=== PATIENT | female | born 1950 | race Hispanic/Latino ===

== ENCOUNTER 2017-10-14 13:44 | Emergency (ER) | payer OTHER, MEDICARE ==
[~2017-10-14] VITALS: Ht 147.3 cm; Wt 59.9 kg
--- OUTSIDE RECORDS SUMMARY | 2017-10-14 13:50 | XMS REPORT ---
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 Allergies, Adverse Reactions, Alerts This patient has no known allergies or adverse reactions. Medications This patient has no known medications. Encounters Start Date/Time End Date/Time Encounter Type Admission Type Attending [facility] Facility Care Department Encounter ID 2017-10-04 11:55:16 2017-10-04 11:55:16 Outpatient [facility] [id number] 2017-08-30 13:19:04 2017-08-30 13:19:04 Outpatient [facility] [id number] 2017-08-27 00:00:00 2017-08-27 00:00:00 Outpatient [facility] [id number] 2017-08-25 00:00:00 2017-08-25 00:00:00 Outpatient [facility] [id number] 2017-07-26 10:43:23 2017-07-26 10:43:23 Outpatient [facility] [id number] 2017-07-19 00:00:00 2017-07-19 00:00:00 Outpatient [facility] [id number] 2017-07-05 00:00:00 2017-07-05 00:00:00 Outpatient [facility] [id number] 2017-06-07 14:40:44 2017-06-07 14:40:44 Outpatient [facility] [id number] 2017-05-17 13:22:31 2017-05-17 13:22:31 Outpatient [facility] [id number] Results Test Description Test Time Test Comments Text Results Atomic Results Result Comments CBC W/PLT COUNT & AUTO DIFFERENTIAL 2017-09-26 19:04:00 WHITE BLOOD CELL COUNT (BEAKER) (test bvxd=742) 3.9 K/ L 3.5-10.5 RED BLOOD CELL COUNT (BEAKER) (test btwu=579) 2.73 M/ L 3.93-5.22 HEMOGLOBIN (BEAKER) (test mutw=154) 9.3 GM/DL 11.2-15.7 HEMATOCRIT (BEAKER) (test neys=218) 27.3 % 34.1-44.9 MEAN CORPUSCULAR VOLUME (BEAKER) (test lvru=858) 100.0 fL 79.4-94.8 MEAN CORPUSCULAR HEMOGLOBIN (BEAKER) (test zjuf=012) 34.1 pg 25.6-32.2 MEAN CORPUSCULAR HEMOGLOBIN CONC (BEAKER) (test sjax=608) 34.1 GM/DL 32.2- 35.5 RED CELL DISTRIBUTION WIDTH (BEAKER) (test vmqx=323) 16.3 % 11.7-14.4 PLATELET COUNT (BEAKER) (test quzz=261) 50 K/CU MM 150-450 MEAN PLATELET VOLUME (BEAKER) (test izvi=616) 11.2 fL 9.4-12.3 NUCLEATED RED BLOOD CELLS (BEAKER) (test upse=879) 0 /100 WBC 0-0 IMMATURE GRANULOCYTES-RELATIVE PERCENT (BEAKER) (test elmm=9335) 1 % 0-1 (MANUAL DIFFERENTIAL)2017-09-26 19:04:00* Test Item Value Reference Range Comments NEUTROPHILS - REL (DIFF) (BEAKER) (test epen=2540) 78 % LYMPHOCYTES - REL (DIFF) (BEAKER) (test ykmv=5118) 9 % MONOCYTES - REL (DIFF) (BEAKER) (test mcct=2009) 7 % EOSINOPHILS - REL (DIFF) (BEAKER) (test bykw=1393) 3 % BANDS - REL (DIFF) (BEAKER) (test hyri=2548) 3 % 0-10 NEUTROPHILS - ABS (DIFF) (BEAKER) (test isjp=3374) 3.04 K/ L 1.80-8.00 LYMPHOCYTES - ABS (DIFF) (BEAKER) (test tuzd=0341) 0.35 K/ L 1.48-4.50 MONOCYTES - ABS (DIFF) (BEAKER) (test ywsk=6831) 0.27 K/ L 0.00-1.30 EOSINOPHILS - ABS (DIFF) (BEAKER) (test atri=5607) 0.12 K/ L 0.00-0.50 BANDS-ABS (DIFF) (BEAKER) (test fyzp=4953) 0.1 K/ L 0.0-0.8 TOTAL COUNTED (BEAKER) (test rpfg=8495) 100 BANDS + SEGMENTED NEUTROPHILS (BEAKER) (test vzzb=5490) 3.16 WBC MORPHOLOGY (BEAKER) (test mtml=430) Normal PLT MORPHOLOGY (BEAKER) (test mpaf=391) Normal OVALOCYTES (BEAKER) (test xzup=307) 1+ few TEAR DROP CELLS (BEAKER) (test pjld=019) 1+ few PT/[id number] 18:45:00* Test Item Value Reference Range Comments PROTIME (BEAKER) (test nmeo=112) 23.1 seconds 11.7-14.7 INR (BEAKER) (test gcfv=803) 2.1 <=5.9 PARTIAL THROMBOPLASTIN TIME (BEAKER) (test sjzj=878) 42.7 seconds 22.5-36.0 RECOMMENDED COUMADIN/WARFARIN INR THERAPY RANGESSTANDARD DOSE: 2.0 - 3.0 Includes: PROPHYLAXIS for venous thrombosis, systemic embolization; TREATMENT for venous thrombosis and/or pulmonary embolus.HIGH RISK: Target INR is 2.5-3.5 for patients with mechanical heart valves.BASIC METABOLIC [id number] 18:43: 00* Test Item Value Reference Range Comments SODIUM (BEAKER) (test auau=906) 136 meq/L 136-145 POTASSIUM (BEAKER) (test mwry=660) 3.1 meq/L 3.5-5.1 CHLORIDE (BEAKER) (test jkez=727) 108 meq/L 98-107 CO2 (BEAKER) (test dyxg=796) 19 meq/L 22-29 BLOOD UREA NITROGEN (BEAKER) (test ymoa=192) 11 mg/dL 7-21 CREATININE (BEAKER) (test smhc=327) 0.68 mg/dL 0.57-1.25 GLUCOSE RANDOM (BEAKER) (test udgw=914) 105 mg/dL 70-105 CALCIUM (BEAKER) (test nsua=490) 7.6 mg/dL 8.4-10.2 EGFR (BEAKER) (test kqqk=1288) 87 mL/min/1.73 sq m ESTIMATED GFR IS NOT ACCURATE CREATININE CLEARANCE IN PREDICTING GLOMERULAR FILTRATION RATE. ESTIMATED GFR IS NOT APPLICABLE FOR DIALYSIS PATIENTS. OVA AND PARASITE [id number] 09:26:00* Test Item Value Reference Range Comments DIRECT SMEAR - O\\T\\P (BEAKER) (test uzxf=902) No ova or parasites seen No ova or parasites seen CONCENTRATE SMEAR - O\\T\\P (BEAKER) (test nrkk=669) No ova or parasites seen No ova or parasites seen TRICHROME SMEAR - O\\T\\P (BEAKER) (test cjvv=653) No ova or parasites seen No ova or parasites seen RAD, CHEST, 1 VIEW, NON [id number] 23:08:00Reason for exam:->SHORTNESS OF BREATHFINAL REPORT INDICATION: SHORTNESS OF BREATH COMPARISON: September 01, 2017 TECHNIQUE: Single frontal view of the chest. FINDINGS: Lungs and pleura: Faint right infrahilar airspace disease. No effusion.Heart and mediastinum: Normal heart size. Unremarkable mediastinal contours.Osseous structures: No acute abnormality.Other: None. IMPRESSION: Right infrahilar airspace disease is nonspecific. This may reflect under inspiration or developing pneumonia in the appropriate clinical context. Signed : JR Dc Robert MDReport Verified Date/Time: 09/16/2017 23:08:11 Reading Location: [address] Reading Room ELLANEOUS LAB [id number] 07:42:00* Test Item Value Reference Range Comments SCAN RESULT (test uhxw=1127084) TISSUE [id number] 18:34:00Surgical Pathology Report Case: [id number] Authorizing Provider: Rhys Clark MD Collected: 09/13/2017 1123 Ordering Location: [facility] Endoscopy Received: 09/13/2017 1442 Services Pathologist: Rosalva Shine MD Specimens: A) - Stomach, Antrum B) - Biopsy, Terminal Ileum, bx check for CMV C) - Large Intestine, Colon - Right/ Ascending, bx check for CMV D) - Large Intestine, Colon - Left/Descending, bx check for CMV A.STOMACH, ANTRUM, ENDOSCOPIC BIOPSY: - CONSISTENT WITH PORTAL GASTROPATHY - CHRONIC GASTRITIS - NO HELICOBACTER PYLORI-LIKE ORGANISMS SEEN ON WARTHIN- STARRY STAIN - NO INTESTINAL METAPLASIA, DYSPLASIA OR MALIGNANCY NOTED - IMMUNOHISTOCHEMICAL STAIN FOR HELICOBACTER IS NEGATIVEB.TERMINAL ILEUM, ENDOSCOPIC BIOPSY: - NO PATHOLOGIC ALTERATION - NO VILLUS BLUNTING, GRANULOMAS, DYSPLASIA OR MALIGNANCY SEEN - NEGATIVE FOR CMV BY IMMUNOHISTOCHEMISTRYC.COLON, RIGHT/ASCENDING, ENDOSCOPIC BIOPSY: - NO PATHOLOGIC ALTERATION - NO SIGNIFICANT ARCHITECTURAL DISTORTION SEEN - NO INCREASED CHRONIC INFLAMMATION PRESENT - NO VIRAL INCLUSIONS, FEATURE OF MICROSCOPIC COLITIS, DYSPLASIA OR MALIGNANCY PRESENT - NEGATIVE FOR CMV BY IMMUNOHISTOCHEMISTRYD.COLON, LEFT/DESCENDING, ENDOSCOPIC BIOPSY: - NO PATHOLOGIC ALTERATION - NO SIGNIFICANT ARCHITECTURAL DISTORTION SEEN - NO INCREASED CHRONIC INFLAMMATION PRESENT - NO VIRAL INCLUSIONS, FEATURE OF MICROSCOPIC COLITIS, DYSPLASIA OR MALIGNANCY PRESENT - NEGATIVE FOR CMV BY IMMUNOHISTOCHEMISTRY Signing Pathologist Direct Phone Line: [phone] of liver without ascites, diarrhea, check for CMVA. Stomach antrum. B. Terminal ileum biopsy. C. Right ascending colon biopsy. D. Left descending colon biopsySpecimen is received in four containers of formalin all labeled with the patient's information and medical record number.Specimen A: Labeled "stomach antrum" consists of four fragments of foster-white soft tissue ranging from less than 0.1 to 0.2 cm, submitted in A1.Specimen B: Labeled "terminal ileum biopsy" consists of a 0.2 cm fragment of foster tissue submitted in B1.Specimen C: Labeled "right ascending colon biopsy" consists of multiple fragments of foster tissue ranging from less than 0.1 to 0.2 cm, submitted entirely in C1.Specimen D: Labeled "left descending colon biopsy" consists of multiple fragments of foster-white red soft tissue ranging less than 0.1 from 0.3, submitted entirely in D1. CG/ewThe following special studies were performed on this case and the interpretation is incorporated in the diagnostic report above:WARTHIN-STARRY; HELICOBACTER PYLORI; CMV X 3The immunohistochemistry test was developed and its performance characteristics determined by [facility]. It has not been cleared or approved by the U.S. Food and Drug Administration. The FDA has determined that such clearance or approval is not necessary. The test is used for clinical purposes. It should not be regarded as investigational or for research. This laboratory is certified under the Clinical Laboratory Improvement Amendments of 1988 (CLIA-88) as qualified to perform high complexity clinical laboratory testing.CLOSTRIDIUM DIFFICILE TOXIN [id number] 15:16:00* Test Item Value Reference Range Comments CLOSTRIDIUM DIFFICILE TOXIN, PCR ([employer]) (test ogcl=8973) Not Detected Not Detected This qualitative real-time polymerase chain reaction assay detects the tcdB gene , encoded on the C.difficile pathogenicity locus (PaLoc). The product of tcdB, toxin B, is a cytotoxin essential for causing C.difficile-associated disease ( CDAD) and is found in virtually all toxigenic C.difficile.This assay is performed for patients suspected of having either community-acquired or nosocomial CDAD. Accordingly, only symptomatic patients should be tested and formed stools will be rejected unless ileus is present (i.e., specified when ordering). Patients may be colonized with toxigenic C.difficile strains not causing active disease; therefore, clinical correlation is needed when deciding how to manage patients with a positive test result.The assay has not been validated as a test of cure as amplifiable nucleic acid may persist after effective treatment; therefore, follow-up testing of a positive result is not recommended.MISCELLANEOUS LAB [id number] 09:59:00* Test Item Value Reference Range Comments SCAN RESULT (test qvyk=[id number]) HEPATITIS B SURFACE [id number] 17:24:00* Test Item Value Reference Range Comments HEPATITIS B SURFACE ANTIGEN (2) ([employer]) (test msux=1931) Nonreactive Nonreactive HEPATITIS A ANTIBODY, [id number] 17:24:00* Test Item Value Reference Range Comments HEPATITIS A IGM ANTIBODY ([employer]) (test pway=143) Nonreactive Nonreactive HIV-1 ANTIGEN WITH HIV-1/2 [id number] 17:24:00* Test Item Value Reference Range Comments HIV-1 ANTIGEN WITH HIV 1\\T\\2 ANTIBODY (2) ([employer]) (test usnb=0330) Nonreactive Nonreactive [id number] 16:44:00* Test Item Value Reference Range Comments RPR SCREEN ([employer]) (test kxhs=891) Nonreactive Nonreactive CRYPTOCOCCAL [id number] 16:40:00* Test Item Value Reference Range Comments CRYPTOCOCCAL ANTIGEN, SERUM ([employer]) (test etcg=6549) Negative Negative, Interference HEMOGLOBIN [id number] 14:20:00* Test Item Value Reference Range Comments HEMOGLOBIN A1C (BEAKER) (test cdoe=694) < % 4.3-6.1 RAD, BONE DENSITY [id number] 13:53:00Reason for Exam:->evaluation for liver transplantFINAL REPORT Bone mineral density study , 09/01/2017. CLINICAL INDICATION: Liver transplant evaluation. COMPARISON: None. FINDINGS: Bone densitometry of the femoral necks and lumbar spine was performed. The left femoral neck bone mineral density is 0.832 gm/cm2, the T- score is -1.5, and the Z-score is 0.2. The right femoral neck total bone mineral density is 0.827 gm/cm2, the T-score is -1.5, and the Z-score is 0.2. The lumbar spine total bone mineral density is 0.752 gm/cm2, the T-score is -3.6 , and the Z-score is -1.8. IMPRESSION: 1. WHO classification of osteopenia for the left femoral neck with an increased risk of fracture. 2. WHO classification of osteopenia for the right femoral neck with an increased risk of fracture. 3. WHO classification of osteoporosis for the lumbar spine with a high risk of fracture. Signed: Akiko Mackey MDReport Verified Date/Time: 13:53:47 Reading Location: [address] Radiology Reading Room ALYSIS W/ [id number] 13:30:00* Test Item Value Reference Range Comments COLOR (BEAKER) (test dfhq=074) [place] CLARITY (BEAKER) (test kodm=139) Hazy SPECIFIC GRAVITY UA (BEAKER) (test axkw=507) 1.024 1.001-1.035 PH UA (BEAKER) (test ovab=301) 6.0 5.0-8.0 PROTEIN UA (BEAKER) (test lkkk=732) 20 mg/dL Negative GLUCOSE UA (BEAKER) (test hjgp=169) Negative Negative KETONES UA (BEAKER) (test aowg=752) Negative Negative BILIRUBIN UA (BEAKER) (test yfen=687) Negative Negative BLOOD UA (BEAKER) (test vlvq=841) Negative Negative NITRITE UA (BEAKER) (test sjtd=646) Negative Negative LEUKOCYTE ESTERASE UA (BEAKER) (test lyac=780) Small Negative UROBILINOGEN UA (BEAKER) (test bdsi=477) 0.2 mg/dL 0.2-1.0 RBC UA (BEAKER) (test jdfq=704) 43 /HPF WBC UA (BEAKER) (test zobu=436) 26 /HPF MUCUS (BEAKER) (test dmme=6594) Many SQUAMOUS EPITHELIAL (BEAKER) (test goxo=557) 7 /HPF CRYSTALS, URINE (BEAKER) (test paxn=9519) Occasional YEAST (BEAKER) (test xasv=7547) Moderate SOURCE(BEAKER) (test fklr=3693) CYTOMEGALOVIRUS ANTIBODY, [id number] 13:07:00* Test Item Value Reference Range Comments CYTOMEGALOVIRUS IGG ANTIBODY (BEAKER) (test uoxx=559) Positive CYTOMEGALOVIRUS ANTIBODY, [id number] 13:07:00* Test Item Value Reference Range Comments CYTOMEGALOVIRUS IGM ANTIBODY (BEAKER) (test jwmk=992) Negative EBV-VCA ANTIBODY, [id number] 13:07:00* Test Item Value Reference Range Comments SHIRLEY-NAVA VCA IGG (BEAKER) (test ojeh=486) Positive EBV-VCA ANTIBODY, [id number] 13:07:00* Test Item Value Reference Range Comments SHIRLEY-NAVA VCA IGM (BEAKER) (test gvly=454) Negative [id number] 13:04:00* Test Item Value Reference Range Comments T4 TOTAL (BEAKER) (test wduq=179) 6.1 ug/dL 4.9-11.7 [id number] 13:04:00* Test Item Value Reference Range Comments THYROID STIMULATING HORMONE (BEAKER) (test iqbu=456) 2.02 uIU/mL 0.35-4.94 [id number] 13:04:00* Test Item Value Reference Range Comments T3 TOTAL (BEAKER) (test fphh=640) 56 ng/dL 48-159 VITAMIN D, [id number] 13:04:00* Test Item Value Reference Range Comments VITAMIN D 25-OH (BEKVNG) (test sugb=9650) 15.5 ng/mL 6.6-49.9 Effective 05/19/2017: Reference Range ChangeNew: 6.6-49.9 ng/mL Previous: 13.0 -47.8 ng/mLRecommended Vitamin D Target Range: 30.0-40.0 ng/mLRAD, MANDIBLE, MIN 4 [id number] 13:02:00Reason for Exam:->evaluation for liver transplantFINAL REPORT Mandible series, five images HISTORY: Liver transplant COMPARISON: None IMPRESSION:Patient is edentulous. Mandible intact. Temporomandibular joints unremarkable. The nasal sinuses and mastoid air cells clear. Atherosclerosis noted. Soft tissues otherwise unremarkable. Signed: Akiko Mcakey Verified Date/Time: 09/01/2017 13:02:39 Reading Location: [address] Radiology Reading Room , CHEST, 2 [id number] 12:53:00Reason for Exam:->evaluation for liver transplantFINAL REPORT Chest, PA and lateral. History: Liver transplant evaluation. Comparison: 06/17/2017. Discussion: The cardiomediastinal silhouette and pulmonary vasculature are within normal limits. The lungs are clear without evidence of consolidation or effusion. There are no acute osseous abnormalities. The soft tissues are unremarkable. IMPRESSION: No acute cardiopulmonary abnormality. Signed: Akiko Mackey Verified Date/Time: 09/01/2017 12:53:21 Reading Location: [address] Radiology Reading Room [id number] 12:47:00* Test Item Value Reference Range Comments TRANSFERRIN (BEAKER) (test aicu=756) 141 mg/dL 174-382 Specimen slightly ictericCOMPREHENSIVE METABOLIC [id number] 12:38:00* Test Item Value Reference Range Comments TOTAL PROTEIN (BEAKER) (test okjz=788) 5.8 gm/dL 6.0-8.3 Specimen slightly hemolyzed ALBUMIN (BEAKER) (test zcbk=0170) 2.3 g/dL 3.5-5.0 Specimen slightly hemolyzed ALKALINE PHOSPHATASE (BEAKER) (test pnxj=175) 187 U/L 40-150 BILIRUBIN TOTAL (BEAKER) (test ykns=748) 2.5 mg/dL 0.2-1.2 Specimen slightly hemolyzed SODIUM (BEAKER) (test kdjy=498) 141 meq/L 136-145 POTASSIUM (BEAKER) (test qnqm=915) 3.7 meq/L 3.5-5.1 Specimen slightly hemolyzed CHLORIDE (BEAKER) (test vjrd=482) 109 meq/L 98-107 CO2 (BEAKER) (test gpjv=277) 22 meq/L 22-29 BLOOD UREA NITROGEN (BEAKER) (test lxkk=302) 13 mg/dL 7-21 CREATININE (BEAKER) (test ktve=721) 0.71 mg/dL 0.57-1.25 Specimen slightly hemolyzed GLUCOSE RANDOM (BEAKER) (test horc=399) 87 mg/dL 70-105 CALCIUM (BEAKER) (test ketf=474) 7.9 mg/dL 8.4-10.2 AST (SGOT) (BEAKER) (test balp=938) 64 U/L 5-34 Specimen slightly hemolyzed ALT (SGPT) (BEAKER) (test atti=015) 32 U/L 6-55 Specimen slightly hemolyzed EGFR (BEAKER) (test eadw=6844) 82 mL/min/1.73 sq m ESTIMATED GFR IS NOT ACCURATE CREATININE CLEARANCE IN PREDICTING GLOMERULAR FILTRATION RATE. ESTIMATED GFR IS NOT APPLICABLE FOR DIALYSIS PATIENTS. Specimen slightly [id number] 12:21:00* Test Item Value Reference Range Comments ETHANOL (BEAKER) (test mxza=873) < mg/dL <=10 [id number] 12:10:00* Test Item Value Reference Range Comments PHOSPHORUS (BEAKER) (test fdrw=267) 2.8 mg/dL 2.3-4.7 Specimen slightly hemolyzed URIC [id number] 12:10:00* Test Item Value Reference Range Comments URIC ACID (BEAKER) (test yhra=621) 7.8 mg/dL 2.6-7.2 Specimen slightly hemolyzed Specimen slightly ictericLIPID [id number] 12:10:00* Test Item Value Reference Range Comments TRIGLYCERIDES (BEAKER) (test voso=420) 85 mg/dL Specimen slightly hemolyzed CHOLESTEROL (BEAKER) (test fbto=727) 113 mg/dL Specimen slightly hemolyzed HDL CHOLESTEROL (BEAKER) (test jodc=259) 28 mg/dL LDL CHOLESTEROL CALCULATED (BEAKER) (test xnhd=254) 68 mg/dL Triglyceride Reference Range: Low Risk <150 Borderline 150-199 High Risk 200-499 Very High Risk >=500Cholesterol Reference Range: Low Risk <200 Borderline 200-239 High Risk >240HDL Cholesterol Reference Range: Low Risk >=60 High Risk <40LDL Cholesterol Reference Range: Optimal <100 Near Optimal 100-129 Borderline 130-159 High 160-189 Very High >=190 Specimen slightly ictericBILIRUBIN, [id number] 12:10:00* Test Item Value Reference Range Comments BILIRUBIN DIRECT (BEAKER) (test rumh=917) 1.2 mg/dL 0.1-0.5 Specimen slightly hemolyzed GAMMA GLUTAMYL TRANSFERASE (GGT)2017-09-01 12:10:00* Test Item Value Reference Range Comments GAMMA GLUTAMYL TRANSFERASE (BEAKER) (test rjwr=185) 102 U/L 9-64 Specimen slightly hemolyzed Specimen slightly ictericCARCINOEMBRYONIC ANTIGEN (CEA)2017-09-01 12:01:00* Test Item Value Reference Range Comments CARCINOEMBRYONIC ANTIGEN (BEAKER) (test tcvj=835) 6.6 ng/mL 0.0-5.0 [id number] 12:01:00* Test Item Value Reference Range Comments FERRITIN (BEAKER) (test ffbw=612) 246 ng/mL 5-275 CBC W/PLT COUNT & AUTO [id number] 11:21:00* Test Item Value Reference Range Comments WHITE BLOOD CELL COUNT (BEAKER) (test hczz=126) 4.6 K/ L 3.5-10.5 RED BLOOD CELL COUNT (BEAKER) (test fkkg=968) 2.82 M/ L 3.93-5.22 HEMOGLOBIN (BEAKER) (test mtei=558) 9.7 GM/DL 11.2-15.7 HEMATOCRIT (BEAKER) (test xyyr=057) 28.9 % 34.1-44.9 MEAN CORPUSCULAR VOLUME (BEAKER) (test hped=598) 102.5 fL 79.4-94.8 MEAN CORPUSCULAR HEMOGLOBIN (BEAKER) (test vslr=764) 34.4 pg 25.6-32.2 MEAN CORPUSCULAR HEMOGLOBIN CONC (BEAKER) (test ufnw=446) 33.6 GM/DL 32.2- 35.5 RED CELL DISTRIBUTION WIDTH (BEAKER) (test xxuy=636) 16.2 % 11.7-14.4 PLATELET COUNT (BEAKER) (test jrov=316) 74 K/CU MM 150-450 MEAN PLATELET VOLUME (BEAKER) (test xfqa=403) 11.1 fL 9.4-12.3 NUCLEATED RED BLOOD CELLS (BEAKER) (test jfrj=610) 0 /100 WBC 0-0 NEUTROPHILS RELATIVE PERCENT (BEAKER) (test hyiv=916) 36 % LYMPHOCYTES RELATIVE PERCENT (BEAKER) (test vxrx=016) 54 % MONOCYTES RELATIVE PERCENT (BEAKER) (test ftxx=068) 8 % EOSINOPHILS RELATIVE PERCENT (BEAKER) (test fbng=362) 2 % BASOPHILS RELATIVE PERCENT (BEAKER) (test sifc=086) 0 % NEUTROPHILS ABSOLUTE COUNT (BEAKER) (test lbuc=733) 1.63 K/ L 1.56-6.13 LYMPHOCYTES ABSOLUTE COUNT (BEAKER) (test utxz=953) 2.48 K/ L 1.18-3.74 MONOCYTES ABSOLUTE COUNT (BEAKER) (test pxyv=950) 0.36 K/ L 0.24-0.36 EOSINOPHILS ABSOLUTE COUNT (BEAKER) (test abiv=333) 0.07 K/ L 0.04-0.36 BASOPHILS ABSOLUTE COUNT (BEAKER) (test ctnp=249) 0.02 K/ L 0.01-0.08 IMMATURE GRANULOCYTES-RELATIVE PERCENT (BEAKER) (test enhu=6841) 0 % 0-1 [id number] 11:13:00* Test Item Value Reference Range Comments FIBRINOGEN LEVEL (BEAKER) (test uoqe=535) 108 mg/dl 225-434 [id number] 11:08:00* Test Item Value Reference Range Comments PARTIAL THROMBOPLASTIN TIME (BEAKER) (test uajn=679) 37.9 seconds 22.5-36.0 PROTHROMBIN TIME/[id number] 11:07:00* Test Item Value Reference Range Comments PROTIME (BEAKER) (test azev=101) 19.6 seconds 11.7-14.7 INR (BEAKER) (test fmue=064) 1.7 <=5.9 RECOMMENDED COUMADIN/WARFARIN INR THERAPY RANGESSTANDARD DOSE: 2.0 - 3.0 Includes: PROPHYLAXIS for venous thrombosis, systemic embolization; TREATMENT for venous thrombosis and/or pulmonary embolus.HIGH RISK: Target INR is 2.5-3.5 for patients with mechanical heart valves.CALCIUM, [id number] 11:04:00* Test Item Value Reference Range Comments CALCIUM IONIZED (BEAKER) (test jxrw=815) 0.93 mmol/L 1.12-1.27 PH, BLOOD (BEAKER) (test cfkf=4318) 7.40 BLOOD GAS, [id number] 10:37:00* Test Item Value Reference Range Comments PH ARTERIAL (BEAKER) (test deqs=561) 7.46 7.35-7.45 PCO2 ARTERIAL (BEAKER) (test mqvd=277) 30 mmHg 35-45 PO2 ARTERIAL (BEAKER) (test nanm=846) 99 mmHg 80-90 O2 SATURATION ARTERIAL (BEAKER) (test mnyo=422) 97.9 % 96.0-97.0 HCO3 ARTERIAL (BEAKER) (test msvi=696) 21 mmol/L 21-29 BASE EXCESS ARTERIAL (BEAKER) (test fmul=140) -2.0 mmol/L -2.0-3.0 PATIENT TEMPERATURE (BEAKER) (test iogs=6050) 37.0 C FIO2 (BEAKER) (test umgj=5047) 21.0 % MR, ABDOMEN, [id number] 10:31:00FINAL REPORT MR of the abdomen dated September 01, 2017 Comment: Multiplanar T1 and T2-weighted images of the abdomen, postcontrast axial and coronal T1-weighted images of the abdomen were obtained. Liver is cirrhotic in appearance. A 1 cm early enhancing focus is seen in the segment 7 of the liver. There is delayed washout. A 1.3 cm early enhancing focus is noted in the segment 4B of the liver without delayed washout. A 3 mm cyst is seen in the segment 8 of the liver. Spleen is enlarged measuring approximately 15.5 x 6.7 x 10.5 cm. The splenic, superior mesenteric, portal, and hepatic veins are patent. No portal vein thrombosis is seen. Gallbladder is not visualized. No biliary dilatation is seen. Pancreas and adrenals are unremarkable. Both kidneys are normal in size and functioning. Trace to small amount of ascites is seen in the abdomen. Bone marrow signal of the dorsal spine is normal. IMPRESSION:1. Cirrhosis with splenomegaly and portal hypertension.2. Suspicious lesion in the segment 7 of the liver. This can be further evaluated with subsequent examination. Signed: Khalida Eldridge MDReport Verified Date/Time: 09/01/2017 10:31:11 Reading Location: [place] [id number] CT Body Reading Room -[id number] 08:07:00* Test Item Value Reference Range Comments POC-CREATININE (BEAKER) (test wyiw=5623) 0.8 mg/dL 0.6-1.3 TESTED AT [address] [address] POC-EGFR (BEAKER) (test cxju=6342) 72 mL/min/1.73M2 CBC W/PLT COUNT & AUTO [id number] 22:18:00* Test Item Value Reference Range Comments WHITE BLOOD CELL COUNT (BEAKER) (test dcle=604) 5.8 K/ L 3.5-10.5 RED BLOOD CELL COUNT (BEAKER) (test fnij=008) 2.84 M/ L 3.93-5.22 HEMOGLOBIN (BEAKER) (test rqyy=668) 9.4 GM/DL 11.2-15.7 HEMATOCRIT (BEAKER) (test qeyc=291) 28.5 % 34.1-44.9 MEAN CORPUSCULAR VOLUME (BEAKER) (test vwod=122) 100.4 fL 79.4-94.8 MEAN CORPUSCULAR HEMOGLOBIN (BEAKER) (test rkpn=280) 33.1 pg 25.6-32.2 MEAN CORPUSCULAR HEMOGLOBIN CONC (BEAKER) (test bmkh=939) 33.0 GM/DL 32.2- 35.5 RED CELL DISTRIBUTION WIDTH (BEAKER) (test fceb=504) 18.7 % 11.7-14.4 PLATELET COUNT (BEAKER) (test ehfy=102) 55 K/CU MM 150-450 MEAN PLATELET VOLUME (BEAKER) (test xgxf=822) 11.5 fL 9.4-12.3 NUCLEATED RED BLOOD CELLS (BEAKER) (test dfwb=881) 0 /100 WBC 0-0 IMMATURE GRANULOCYTES-RELATIVE PERCENT (BEAKER) (test mmrm=2687) 0 % 0-1 (MANUAL DIFFERENTIAL)2017-07-15 22:18:00* Test Item Value Reference Range Comments NEUTROPHILS - REL (DIFF) (BEAKER) (test jmbv=2334) 33 % LYMPHOCYTES - REL (DIFF) (BEAKER) (test gylk=4476) 53 % MONOCYTES - REL (DIFF) (BEAKER) (test tsnu=0086) 8 % EOSINOPHILS - REL (DIFF) (BEAKER) (test kwek=8783) 4 % BASOPHILS - REL (DIFF) (BEAKER) (test nokr=8463) 2 % NEUTROPHILS - ABS (DIFF) (BEAKER) (test ysfh=0241) 1.91 K/ L 1.80-8.00 LYMPHOCYTES - ABS (DIFF) (BEAKER) (test mvml=7645) 3.07 K/ L 1.48-4.50 MONOCYTES - ABS (DIFF) (BEAKER) (test lmub=4914) 0.46 K/ L 0.00-1.30 EOSINOPHILS - ABS (DIFF) (BEAKER) (test qthd=6408) 0.23 K/ L 0.00-0.50 BASOPHILS - ABS (DIFF) (BEAKER) (test wdfg=8122) 0.12 K/ L 0.00-0.20 TOTAL COUNTED (BEAKER) (test rdgh=8559) 100 WBC MORPHOLOGY (BEAKER) (test wttg=164) Normal PLT MORPHOLOGY (BEAKER) (test lrpa=563) Normal ANISOCYTOSIS (BEAKER) (test ugrf=934) 1+ few MACROCYTES (BEAKER) (test opgi=596) 1+ few ALPHA FETOPROTEIN (AFP), TUMOR [id number] 14:01:00* Test Item Value Reference Range Comments ALPHA-FETOPROTEIN (BEAKER) (test mtij=2580) 7.6 ng/mL <10.0 BASIC METABOLIC [id number] 13:43:00* Test Item Value Reference Range Comments SODIUM (BEAKER) (test egpk=253) 142 meq/L 136-145 POTASSIUM (BEAKER) (test pvah=495) 4.1 meq/L 3.5-5.1 CHLORIDE (BEAKER) (test keow=433) 112 meq/L 98-107 CO2 (BEAKER) (test houa=655) 22 meq/L 22-29 BLOOD UREA NITROGEN (BEAKER) (test oqtf=510) 13 mg/dL 7-21 CREATININE (BEAKER) (test iesl=222) 0.69 mg/dL 0.57-1.25 GLUCOSE RANDOM (BEAKER) (test ttkf=064) 85 mg/dL 70-105 CALCIUM (BEAKER) (test wojr=510) 8.4 mg/dL 8.4-10.2 EGFR (BEAKER) (test bxvp=8607) 85 mL/min/1.73 sq m ESTIMATED GFR IS NOT ACCURATE CREATININE CLEARANCE IN PREDICTING GLOMERULAR FILTRATION RATE. ESTIMATED GFR IS NOT APPLICABLE FOR DIALYSIS PATIENTS. Specimen slightly ictericHEPATIC FUNCTION [id number] 13:43:00* Test Item Value Reference Range Comments TOTAL PROTEIN (BEAKER) (test opxg=582) 6.1 gm/dL 6.0-8.3 ALBUMIN (BEAKER) (test qxyy=1875) 2.7 g/dL 3.5-5.0 BILIRUBIN TOTAL (BEAKER) (test zodd=349) 2.9 mg/dL 0.2-1.2 BILIRUBIN DIRECT (BEAKER) (test lsii=210) 1.7 mg/dL 0.1-0.5 ALKALINE PHOSPHATASE (BEAKER) (test rkte=915) 192 U/L 40-150 AST (SGOT) (BEAKER) (test jgtq=991) 56 U/L 5-34 ALT (SGPT) (BEAKER) (test yphx=929) 28 U/L 6-55 Specimen slightly ictericPROTHROMBIN [id number] 13:12:00* Test Item Value Reference Range Comments PROTIME (BEAKER) (test drcc=811) 17.8 seconds 11.7-14.7 INR (BEAKER) (test hqqh=621) 1.5 <=5.9 RECOMMENDED COUMADIN/WARFARIN INR THERAPY RANGESSTANDARD DOSE: 2.0 - 3.0 Includes: PROPHYLAXIS for venous thrombosis, systemic embolization; TREATMENT for venous thrombosis and/or pulmonary embolus.HIGH RISK: Target INR is 2.5-3.5 for patients with mechanical heart valves.BLOOD [id number] 09:07:00* Test Item Value Reference Range Comments CULTURE (BEAKER) (test qvpp=5787) From Aerobic And Anaerobic Bottles Coagulase negative Staphylococcus GRAM STAIN RESULT (BEAKER) (test hphj=3887) From aerobic and anaerobic bottles : gram positive cocci in clusters NOT DETECTEDPanel is negative for Bio[employer] BCID-detectable organisms. Please refer to traditional culture and sensitivity results as they become available.Other organisms and resistance markers not contained in this PCR panel cannot be excluded and follow-up of traditional culture results is required. This sample was tested at the [facility] Clinical [facility] using the [employer] Blood Culture ID Panel. This test is FDA cleared for in vitro diagnostic use and has been verified and approved by the [facility] Clinical Microbiology laboratory for clinical use. Reference Range: Not DetectedBLOOD [id number] 23:00:00* Test Item Value Reference Range Comments CULTURE (BEAKER) (test xsry=6093) No growth in 5 days MISCELLANEOUS LAB [id number] 14:44:00* Test Item Value Reference Range Comments SCAN RESULT (test xnaw=[id number]) Result comments: NOT DETECTED Panel is negative for BioFire BCID-detectable organisms. Please refer to traditional culture and sensitivity results as they become available. Other organisms and resistance markers not contained in this PCR panel cannot be excluded and follow-up of traditional culture results is required. This sample was tested at the [facility] Clinical [facility]biology [facility] using the [employer] Blood Culture ID Panel. This test is FDA cleared for in vitro diagnostic use and has been verified and approved by the [facility] Clinical Microbiology laboratory for clinical use. Reference Range: Not Detected CBC W/PLT COUNT & AUTO [id number] 07:27:00* Test Item Value Reference Range Comments WHITE BLOOD CELL COUNT (BEAKER) (test sthb=458) 3.4 K/ L 3.5-10.5 RED BLOOD CELL COUNT (BEAKER) (test nmem=589) 2.71 M/ L 3.93-5.22 HEMOGLOBIN (BEAKER) (test azqq=626) 8.6 GM/DL 11.2-15.7 HEMATOCRIT (BEAKER) (test knqk=773) 25.6 % 34.1-44.9 MEAN CORPUSCULAR VOLUME (BEAKER) (test pqek=808) 94.5 fL 79.4-94.8 MEAN CORPUSCULAR HEMOGLOBIN (BEAKER) (test wqbg=381) 31.7 pg 25.6-32.2 MEAN CORPUSCULAR HEMOGLOBIN CONC (BEAKER) (test mppz=059) 33.6 GM/DL 32.2- 35.5 RED CELL DISTRIBUTION WIDTH (BEAKER) (test ucgx=835) 18.5 % 11.7-14.4 PLATELET COUNT (BEAKER) (test cujx=445) 49 K/CU MM 150-450 MEAN PLATELET VOLUME (BEAKER) (test cqql=578) 12.0 fL 9.4-12.3 NUCLEATED RED BLOOD CELLS (BEAKER) (test fnjo=146) 0 /100 WBC 0-0 NEUTROPHILS RELATIVE PERCENT (BEAKER) (test wsgj=586) 23 % LYMPHOCYTES RELATIVE PERCENT (BEAKER) (test ftxr=283) 61 % MONOCYTES RELATIVE PERCENT (BEAKER) (test qyqt=767) 11 % EOSINOPHILS RELATIVE PERCENT (BEAKER) (test segw=630) 5 % BASOPHILS RELATIVE PERCENT (BEAKER) (test jtql=006) 0 % NEUTROPHILS ABSOLUTE COUNT (BEAKER) (test mhyt=382) 0.78 K/ L 1.56-6.13 LYMPHOCYTES ABSOLUTE COUNT (BEAKER) (test eepp=154) 2.05 K/ L 1.18-3.74 MONOCYTES ABSOLUTE COUNT (BEAKER) (test lifg=352) 0.38 K/ L 0.24-0.36 EOSINOPHILS ABSOLUTE COUNT (BEAKER) (test hbug=795) 0.15 K/ L 0.04-0.36 BASOPHILS ABSOLUTE COUNT (BEAKER) (test apgr=965) 0.01 K/ L 0.01-0.08 IMMATURE GRANULOCYTES-RELATIVE PERCENT (BEAKER) (test ndyx=5137) 0 % 0-1 (MANUAL DIFFERENTIAL)2017-06-20 07:27:00* Test Item Value Reference Range Comments NEUTROPHILS - REL (DIFF) (BEAKER) (test xcoq=6439) 34 % LYMPHOCYTES - REL (DIFF) (BEAKER) (test ttxr=4452) 45 % MONOCYTES - REL (DIFF) (BEAKER) (test nyrg=5297) 13 % EOSINOPHILS - REL (DIFF) (BEAKER) (test pefd=0626) 8 % BASOPHILS - REL (DIFF) (BEAKER) (test bcpu=2323) 0 % NEUTROPHILS - ABS (DIFF) (BEAKER) (test miuw=3656) 1.16 K/ L 1.80-8.00 LYMPHOCYTES - ABS (DIFF) (BEAKER) (test sjpn=6574) 1.53 K/ L 1.48-4.50 MONOCYTES - ABS (DIFF) (BEAKER) (test qubl=1776) 0.44 K/ L 0.00-1.30 EOSINOPHILS - ABS (DIFF) (BEAKER) (test nvcf=0622) 0.27 K/ L 0.00-0.50 BASOPHILS - ABS (DIFF) (BEAKER) (test cdhy=5355) 0.00 K/ L 0.00-0.20 TOTAL COUNTED (BEAKER) (test jaqi=7480) 100 PLT MORPHOLOGY (BEAKER) (test ppta=191) Normal SMUDGE CELLS (BEAKER) (test utlq=3027) Present ANISOCYTOSIS (BEAKER) (test swas=802) 1+ few POIKILOCYTES (BEAKER) (test hqjw=679) 1+ few [id number] 06:12:00* Test Item Value Reference Range Comments MAGNESIUM (BEAKER) (test rxfb=325) 1.7 mg/dL 1.6-2.6 BASIC METABOLIC [id number] 06:12:00* Test Item Value Reference Range Comments SODIUM (BEAKER) (test rwcn=015) 139 meq/L 136-145 POTASSIUM (BEAKER) (test wcwn=991) 3.8 meq/L 3.5-5.1 CHLORIDE (BEAKER) (test pkus=719) 111 meq/L 98-107 CO2 (BEAKER) (test rjdl=149) 20 meq/L 22-29 BLOOD UREA NITROGEN (BEAKER) (test zydb=000) 13 mg/dL 7-21 CREATININE (BEAKER) (test zqhk=264) 0.68 mg/dL 0.57-1.25 GLUCOSE RANDOM (BEAKER) (test bwou=009) 105 mg/dL 70-105 CALCIUM (BEAKER) (test uiik=734) 8.1 mg/dL 8.4-10.2 EGFR (BEAKER) (test tfrf=4221) 87 mL/min/1.73 sq m ESTIMATED GFR IS NOT ACCURATE CREATININE CLEARANCE IN PREDICTING GLOMERULAR FILTRATION RATE. ESTIMATED GFR IS NOT APPLICABLE FOR DIALYSIS PATIENTS. Specimen slightly ictericHEPATIC FUNCTION [id number] 06:12:00* Test Item Value Reference Range Comments TOTAL PROTEIN (BEAKER) (test naxu=102) 5.5 gm/dL 6.0-8.3 ALBUMIN (BEAKER) (test qgdg=0052) 2.6 g/dL 3.5-5.0 BILIRUBIN TOTAL (BEAKER) (test hjpa=511) 2.8 mg/dL 0.2-1.2 BILIRUBIN DIRECT (BEAKER) (test thvy=241) 1.5 mg/dL 0.1-0.5 ALKALINE PHOSPHATASE (BEAKER) (test fypd=328) 163 U/L 40-150 AST (SGOT) (BEAKER) (test sqrq=691) 40 U/L 5-34 ALT (SGPT) (BEAKER) (test laxz=738) 21 U/L 6-55 Specimen slightly ictericPROTHROMBIN [id number] 05:22:00* Test Item Value Reference Range Comments PROTIME (BEAKER) (test luei=587) 19.0 seconds 11.7-14.7 INR (BEAKER) (test yfii=930) 1.6 <=5.9 RECOMMENDED COUMADIN/WARFARIN INR THERAPY RANGESSTANDARD DOSE: 2.0 - 3.0 Includes: PROPHYLAXIS for venous thrombosis, systemic embolization; TREATMENT for venous thrombosis and/or pulmonary embolus.HIGH RISK: Target INR is 2.5-3.5 for patients with mechanical heart valves.URINALYSIS W/ [id number] 10 :14:00* Test Item Value Reference Range Comments COLOR (BEAKER) (test keqv=429) [place] CLARITY (BEAKER) (test czdd=777) Hazy SPECIFIC GRAVITY UA (BEAKER) (test zqtw=049) 1.021 1.001-1.035 PH UA (BEAKER) (test ovfj=437) 5.5 5.0-8.0 PROTEIN UA (BEAKER) (test zwmo=779) 20 mg/dL Negative GLUCOSE UA (BEAKER) (test igeb=830) Negative Negative KETONES UA (BEAKER) (test cmoh=566) Negative Negative BILIRUBIN UA (BEAKER) (test moly=935) Negative Negative BLOOD UA (BEAKER) (test bata=184) Negative Negative NITRITE UA (BEAKER) (test vxww=065) Negative Negative LEUKOCYTE ESTERASE UA (BEAKER) (test xmki=030) Trace Negative UROBILINOGEN UA (BEAKER) (test esfw=010) 0.2 mg/dL 0.2-1.0 RBC UA (BEAKER) (test bgtt=688) 1 /HPF WBC UA (BEAKER) (test ryut=084) 8 /HPF BACTERIA (BEAKER) (test qfey=923) Rare MUCUS (BEAKER) (test tbax=0201) Many SQUAMOUS EPITHELIAL (BEAKER) (test fzkb=699) 4 /HPF HYALINE CASTS (BEAKER) (test zndr=339) 11 /LPF AMORPHOUS CRYSTALS (BEAKER) (test xasw=5598) Few SOURCE(BEAKER) (test gptu=1322) Urine, Voided CHLORIDE, RANDOM [id number] 10:00:00* Test Item Value Reference Range Comments CHLORIDE URINE (BEAKER) (test cxbh=802) 78 meq/L Reference Range: No NormalsIf possible, please collect urine at around the time of morning labs for comparison purposesIf possible, please collect urine at around the time of morning labs for comparison purposesIf possible, please collect urine at around the time of morning labs for comparison purposesPOTASSIUM, RANDOM [id number] 10:00:00* Test Item Value Reference Range Comments POTASSIUM URINE (BEAKER) (test bhyj=628) 40.9 meq/L Reference Range: No NormalsIf possible, please collect urine at around the time of morning labs for comparison purposesIf possible, please collect urine at around the time of morning labs for comparison purposesIf possible, please collect urine at around the time of morning labs for comparison purposesSODIUM, RANDOM [id number] 10:00:00* Test Item Value Reference Range Comments SODIUM URINE (BEAKER) (test ruwo=070) 64 meq/L Reference Range: No NormalsIf possible, please collect urine at around the time of morning labs for comparison purposesIf possible, please collect urine at around the time of morning labs for comparison purposesIf possible, please collect urine at around the time of morning labs for comparison [id number] 08:14:00* Test Item Value Reference Range Comments MAGNESIUM (BEAKER) (test ynsc=482) 1.7 mg/dL 1.6-2.6 BASIC METABOLIC [id number] 08:14:00* Test Item Value Reference Range Comments SODIUM (BEAKER) (test awju=578) 143 meq/L 136-145 POTASSIUM (BEAKER) (test jwaa=444) 3.7 meq/L 3.5-5.1 CHLORIDE (BEAKER) (test txbd=200) 115 meq/L 98-107 CO2 (BEAKER) (test ghpc=659) 15 meq/L 22-29 BLOOD UREA NITROGEN (BEAKER) (test gddp=359) 19 mg/dL 7-21 CREATININE (BEAKER) (test mebs=443) 0.67 mg/dL 0.57-1.25 GLUCOSE RANDOM (BEAKER) (test rbsp=554) 97 mg/dL 70-105 CALCIUM (BEAKER) (test acir=080) 8.5 mg/dL 8.4-10.2 EGFR (BEAKER) (test xuzf=9516) 88 mL/min/1.73 sq m ESTIMATED GFR IS NOT ACCURATE CREATININE CLEARANCE IN PREDICTING GLOMERULAR FILTRATION RATE. ESTIMATED GFR IS NOT APPLICABLE FOR DIALYSIS PATIENTS. Specimen slightly ictericHEPATIC FUNCTION [id number] 08:14:00* Test Item Value Reference Range Comments TOTAL PROTEIN (BEAKER) (test ldsy=245) 6.2 gm/dL 6.0-8.3 ALBUMIN (BEAKER) (test zxhk=4442) 3.0 g/dL 3.5-5.0 BILIRUBIN TOTAL (BEAKER) (test uabq=651) 3.1 mg/dL 0.2-1.2 BILIRUBIN DIRECT (BEAKER) (test foyt=171) 1.6 mg/dL 0.1-0.5 ALKALINE PHOSPHATASE (BEAKER) (test lngr=146) 178 U/L 40-150 AST (SGOT) (BEAKER) (test umep=370) 43 U/L 5-34 ALT (SGPT) (BEAKER) (test blrz=487) 22 U/L 6-55 Specimen slightly ictericCBC W/PLT COUNT & AUTO [id number] 07:10:00 * Test Item Value Reference Range Comments WHITE BLOOD CELL COUNT (BEAKER) (test vaod=686) 4.1 K/ L 3.5-10.5 RED BLOOD CELL COUNT (BEAKER) (test rfmr=656) 2.92 M/ L 3.93-5.22 HEMOGLOBIN (BEAKER) (test ocdx=272) 9.4 GM/DL 11.2-15.7 HEMATOCRIT (BEAKER) (test wilg=866) 28.2 % 34.1-44.9 MEAN CORPUSCULAR VOLUME (BEAKER) (test xayw=681) 96.6 fL 79.4-94.8 MEAN CORPUSCULAR HEMOGLOBIN (BEAKER) (test ifuz=348) 32.2 pg 25.6-32.2 MEAN CORPUSCULAR HEMOGLOBIN CONC (BEAKER) (test tvxo=815) 33.3 GM/DL 32.2- 35.5 RED CELL DISTRIBUTION WIDTH (BEAKER) (test jgts=500) 19.0 % 11.7-14.4 PLATELET COUNT (BEAKER) (test oznx=364) 56 K/CU MM 150-450 MEAN PLATELET VOLUME (BEAKER) (test vuql=695) 12.3 fL 9.4-12.3 NUCLEATED RED BLOOD CELLS (BEAKER) (test jqvu=077) 0 /100 WBC 0-0 NEUTROPHILS RELATIVE PERCENT (BEAKER) (test mgfm=700) 28 % LYMPHOCYTES RELATIVE PERCENT (BEAKER) (test mynn=068) 57 % MONOCYTES RELATIVE PERCENT (BEAKER) (test wzai=191) 11 % EOSINOPHILS RELATIVE PERCENT (BEAKER) (test yukz=558) 3 % BASOPHILS RELATIVE PERCENT (BEAKER) (test aunr=695) 0 % NEUTROPHILS ABSOLUTE COUNT (BEAKER) (test xtet=413) 1.15 K/ L 1.56-6.13 LYMPHOCYTES ABSOLUTE COUNT (BEAKER) (test fhxk=216) 2.37 K/ L 1.18-3.74 MONOCYTES ABSOLUTE COUNT (BEAKER) (test pqar=448) 0.46 K/ L 0.24-0.36 EOSINOPHILS ABSOLUTE COUNT (BEAKER) (test hgzn=679) 0.14 K/ L 0.04-0.36 BASOPHILS ABSOLUTE COUNT (BEAKER) (test sgyb=693) 0.01 K/ L 0.01-0.08 IMMATURE GRANULOCYTES-RELATIVE PERCENT (BEAKER) (test dgmy=5928) 0 % 0-1 PROTHROMBIN [id number] 06:53:00* Test Item Value Reference Range Comments PROTIME (BEAKER) (test mfws=848) 17.7 seconds 11.7-14.7 INR (BEAKER) (test iqpq=239) 1.5 <=5.9 RECOMMENDED COUMADIN/WARFARIN INR THERAPY RANGESSTANDARD DOSE: 2.0 - 3.0 Includes: PROPHYLAXIS for venous thrombosis, systemic embolization; TREATMENT for venous thrombosis and/or pulmonary embolus.HIGH RISK: Target INR is 2.5-3.5 for patients with mechanical heart valves.CBC W/PLT COUNT & AUTO [id number] 07:44:00* Test Item Value Reference Range Comments WHITE BLOOD CELL COUNT (BEAKER) (test vnhr=218) 3.8 K/ L 3.5-10.5 RED BLOOD CELL COUNT (BEAKER) (test arsm=528) 2.80 M/ L 3.93-5.22 HEMOGLOBIN (BEAKER) (test qcof=117) 9.1 GM/DL 11.2-15.7 HEMATOCRIT (BEAKER) (test qrky=403) 27.3 % 34.1-44.9 MEAN CORPUSCULAR VOLUME (BEAKER) (test qdbs=997) 97.5 fL 79.4-94.8 MEAN CORPUSCULAR HEMOGLOBIN (BEAKER) (test eqqs=282) 32.5 pg 25.6-32.2 MEAN CORPUSCULAR HEMOGLOBIN CONC (BEAKER) (test ivhg=762) 33.3 GM/DL 32.2- 35.5 RED CELL DISTRIBUTION WIDTH (BEAKER) (test tjcz=078) 19.1 % 11.7-14.4 PLATELET COUNT (BEAKER) (test phai=338) 50 K/CU MM 150-450 MEAN PLATELET VOLUME (BEAKER) (test wyzu=456) 11.3 fL 9.4-12.3 NUCLEATED RED BLOOD CELLS (BEAKER) (test ocew=827) 0 /100 WBC 0-0 NEUTROPHILS RELATIVE PERCENT (BEAKER) (test pnsl=058) 33 % LYMPHOCYTES RELATIVE PERCENT (BEAKER) (test dpab=488) 52 % MONOCYTES RELATIVE PERCENT (BEAKER) (test hutt=460) 11 % EOSINOPHILS RELATIVE PERCENT (BEAKER) (test tbny=584) 4 % BASOPHILS RELATIVE PERCENT (BEAKER) (test fokl=231) 0 % NEUTROPHILS ABSOLUTE COUNT (BEAKER) (test bdcj=808) 1.24 K/ L 1.56-6.13 LYMPHOCYTES ABSOLUTE COUNT (BEAKER) (test yxoi=469) 1.95 K/ L 1.18-3.74 MONOCYTES ABSOLUTE COUNT (BEAKER) (test vsql=197) 0.43 K/ L 0.24-0.36 EOSINOPHILS ABSOLUTE COUNT (BEAKER) (test hpax=829) 0.13 K/ L 0.04-0.36 BASOPHILS ABSOLUTE COUNT (BEAKER) (test ovzz=464) 0.01 K/ L 0.01-0.08 IMMATURE GRANULOCYTES-RELATIVE PERCENT (BEAKER) (test jamz=8085) 0 % 0-1 (MANUAL DIFFERENTIAL)2017-06-18 07:44:00* Test Item Value Reference Range Comments TOTAL COUNTED (BEAKER) (test wrha=7646) [id number] 07:35:00* Test Item Value Reference Range Comments MAGNESIUM (BEAKER) (test oqjn=940) 1.7 mg/dL 1.6-2.6 BASIC METABOLIC [id number] 07:35:00* Test Item Value Reference Range Comments SODIUM (BEAKER) (test vryg=906) 143 meq/L 136-145 POTASSIUM (BEAKER) (test ydpx=332) 3.9 meq/L 3.5-5.1 CHLORIDE (BEAKER) (test yugq=347) 115 meq/L 98-107 CO2 (BEAKER) (test tdrk=185) 19 meq/L 22-29 BLOOD UREA NITROGEN (BEAKER) (test yuqz=656) 21 mg/dL 7-21 CREATININE (BEAKER) (test rgro=276) 0.73 mg/dL 0.57-1.25 GLUCOSE RANDOM (BEAKER) (test tqsb=204) 103 mg/dL 70-105 CALCIUM (BEAKER) (test qhcc=969) 8.5 mg/dL 8.4-10.2 EGFR (BEAKER) (test gepl=0615) 80 mL/min/1.73 sq m ESTIMATED GFR IS NOT ACCURATE CREATININE CLEARANCE IN PREDICTING GLOMERULAR FILTRATION RATE. ESTIMATED GFR IS NOT APPLICABLE FOR DIALYSIS PATIENTS. Specimen slightly ictericHEPATIC FUNCTION [id number] 07:35:00* Test Item Value Reference Range Comments TOTAL PROTEIN (BEAKER) (test swuy=180) 6.1 gm/dL 6.0-8.3 ALBUMIN (BEAKER) (test ardt=3062) 3.0 g/dL 3.5-5.0 BILIRUBIN TOTAL (BEAKER) (test sgls=111) 3.8 mg/dL 0.2-1.2 BILIRUBIN DIRECT (BEAKER) (test kpde=288) 1.8 mg/dL 0.1-0.5 ALKALINE PHOSPHATASE (BEAKER) (test fivg=488) 178 U/L 40-150 AST (SGOT) (BEAKER) (test ibon=496) 42 U/L 5-34 ALT (SGPT) (BEAKER) (test nrxd=256) 23 U/L 6-55 Specimen slightly ictericPROTHROMBIN [id number] 07:18:00* Test Item Value Reference Range Comments PROTIME (BEAKER) (test peee=248) 19.8 seconds 11.7-14.7 INR (BEAKER) (test fenl=244) 1.7 <=5.9 RECOMMENDED COUMADIN/WARFARIN INR THERAPY RANGESSTANDARD DOSE: 2.0 - 3.0 Includes: PROPHYLAXIS for venous thrombosis, systemic embolization; TREATMENT for venous thrombosis and/or pulmonary embolus.HIGH RISK: Target INR is 2.5-3.5 for patients with mechanical heart valves.URINALYSIS W/ [id number] 18 :41:00* Test Item Value Reference Range Comments COLOR (BEAKER) (test pdng=938) Yellow CLARITY (BEAKER) (test fwaf=596) Hazy SPECIFIC GRAVITY UA (BEAKER) (test logb=184) 1.015 1.001-1.035 PH UA (BEAKER) (test msmc=013) 5.5 5.0-8.0 PROTEIN UA (BEAKER) (test jdew=662) Negative Negative GLUCOSE UA (BEAKER) (test jhfb=192) Negative Negative KETONES UA (BEAKER) (test fmon=354) Negative Negative BILIRUBIN UA (BEAKER) (test rwnf=387) Negative Negative BLOOD UA (BEAKER) (test ftfn=444) Negative Negative NITRITE UA (BEAKER) (test heac=089) Negative Negative LEUKOCYTE ESTERASE UA (BEAKER) (test mwyf=921) Small Negative UROBILINOGEN UA (BEAKER) (test pomz=488) 0.2 mg/dL 0.2-1.0 RBC UA (BEAKER) (test scgr=443) < /HPF WBC UA (BEAKER) (test qzfl=580) 3 /HPF MUCUS (BEAKER) (test hiym=0457) Many SQUAMOUS EPITHELIAL (BEAKER) (test nbfe=725) 8 /HPF HYALINE CASTS (BEAKER) (test ucdr=510) 128 /LPF CALCIUM OXALATE CRYSTALS (BEAKER) (test kxtv=517) Many SOURCE(BEAKER) (test wbda=0215) CT, BRAIN, WITHOUT [id number] 16:14:00Reason for exam:->headacheWhat is the patient's sedation requirement?->No SedationFINAL REPORT CT head without contrast 06/17/2017 4:10 PM CLINICAL HISTORY: headacheslurred speech TECHNIQUE: Axial noncontrast CT images through the head were obtained. This examination was performed according to our departmental dose optimization program, which includes automated exposure control, adjustment of the mA and/or kV according to patient size, and/or use of iterated reconstruction technique. COMPARISON: None available FINDINGS: There is no hemorrhage, extra-axial collection, mass, hydrocephalus, or midline shift. There is mild microvascular ischemia in the supratentorial white matter. There is generalized parenchymal volume loss. The visualized paranasal sinuses and mastoid air cells are well aerated. The skull is intact. IMPRESSION : No intracranial hemorrhage or mass effect. Chronic appearing microvascular and involutional changes. If concern for acute pathology persists, further evaluation with MRI is recommended. Signed: iSdney Hale Verified Date/Time: 06/17/2017 16:14:37 Reading Location: [facility] Reading Room [id number] 16:05:00* Test Item Value Reference Range Comments AMMONIA (BEAKER) (test eeop=657) 78 mol/L 18-72 Specimen slightly hemolyzed B-TYPE NATRIURETIC FACTOR (BNP)2017-06-17 15:20:00* Test Item Value Reference Range Comments B-TYPE NATRIURETIC PEPTIDE (BEAKER) (test fxbv=822) 125 pg/mL 0-100 CREATINE KINASE (CK), TOTAL AND [id number] 15:19:00* Test Item Value Reference Range Comments CREATINE KINASE TOTAL (BEAKER) (test totx=398) 20 U/L 29-200 CREATINE KINASE-MB (BEAKER) (test pvzc=161) 0.5 ng/mL 0.0-6.6 CREATINE KINASE-MB INDEX (BEAKER) (test jsic=131) 2.5 % CK-MB Reference Range:<6.7 Normal6.7-10.0 Borderline>10.0 AbnormalTROPONIN [id number] 15:19:00* Test Item Value Reference Range Comments TROPONIN I (BEAKER) (test xayr=587) < ng/mL 0.00-0.03 Troponin I (TnI) levels must be interpreted in the context of the presenting symptoms and the clinical findings. Elevated TnI levels indicate myocardial damage, but are not specific for ischemic heart disease. Elevated TnI levels are seen in patients with other cardiac conditions (including myocarditis and congestive heart failure), and slight TnI elevations occur in patients with other conditions, including sepsis, renal failure, acidosis, acute neurological disease, and persistent tachyarrhythmia.[id number] 15:16:00* Test Item Value Reference Range Comments MAGNESIUM (BEAKER) (test hact=166) 1.9 mg/dL 1.6-2.6 BASIC METABOLIC [id number] 15:16:00* Test Item Value Reference Range Comments SODIUM (BEAKER) (test uixz=441) 141 meq/L 136-145 POTASSIUM (BEAKER) (test xwrj=516) 4.4 meq/L 3.5-5.1 CHLORIDE (BEAKER) (test gind=482) 112 meq/L 98-107 CO2 (BEAKER) (test crui=262) 19 meq/L 22-29 BLOOD UREA NITROGEN (BEAKER) (test refe=424) 19 mg/dL 7-21 CREATININE (BEAKER) (test vfzk=249) 0.85 mg/dL 0.57-1.25 GLUCOSE RANDOM (BEAKER) (test uqyi=264) 128 mg/dL 70-105 CALCIUM (BEAKER) (test fnny=100) 9.3 mg/dL 8.4-10.2 EGFR (BEAKER) (test fmvz=0961) 67 mL/min/1.73 sq m ESTIMATED GFR IS NOT ACCURATE CREATININE CLEARANCE IN PREDICTING GLOMERULAR FILTRATION RATE. ESTIMATED GFR IS NOT APPLICABLE FOR DIALYSIS PATIENTS. Specimen moderately ictericHEPATIC FUNCTION [id number] 15:16:00* Test Item Value Reference Range Comments TOTAL PROTEIN (BEAKER) (test usbr=050) 6.9 gm/dL 6.0-8.3 ALBUMIN (BEAKER) (test ghjk=3642) 3.3 g/dL 3.5-5.0 BILIRUBIN TOTAL (BEAKER) (test nrbn=452) 5.4 mg/dL 0.2-1.2 BILIRUBIN DIRECT (BEAKER) (test locj=280) 2.0 mg/dL 0.1-0.5 ALKALINE PHOSPHATASE (BEAKER) (test pdad=271) 199 U/L 40-150 AST (SGOT) (BEAKER) (test yssx=180) 49 U/L 5-34 ALT (SGPT) (BEAKER) (test zgtg=255) 26 U/L 6-55 Specimen moderately ictericRAD, CHEST, 1 VIEW, NON [id number] 15:09: 00Reason for exam:->chest painFINAL REPORT Chest, AP view. History: Chest pain. Comparison: None available. Discussion: The cardiomediastinal silhouette and pulmonary vasculature are within normal limits. The lungs are clear without evidence of consolidation or effusion. There are no acute osseous abnormalities. The soft tissues are unremarkable. IMPRESSION: No acute cardiopulmonary abnormality. Signed: [facility] Mackey [facility] Verified Date/Time: 06/17/2017 15:09:18 [facility] Electronically signed by: AKIKO MACKEY M.D. on 2016 03:09 PM PROTHROMBIN TIME/[id number] 15:08:00* Test Item Value Reference Range Comments PROTIME (BEAKER) (test bdjv=694) 19.2 seconds 11.7-14.7 INR (BEAKER) (test dqpf=794) 1.6 <=5.9 RECOMMENDED COUMADIN/WARFARIN INR THERAPY RANGESSTANDARD DOSE: 2.0 - 3.0 Includes: PROPHYLAXIS for venous thrombosis, systemic embolization; TREATMENT for venous thrombosis and/or pulmonary embolus.HIGH RISK: Target INR is 2.5-3.5 for patients with mechanical heart valves.CBC W/PLT COUNT & AUTO [id number] 15:05:00* Test Item Value Reference Range Comments WHITE BLOOD CELL COUNT (BEAKER) (test jbco=248) 4.9 K/ L 3.5-10.5 RED BLOOD CELL COUNT (BEAKER) (test gskt=233) 3.21 M/ L 3.93-5.22 HEMOGLOBIN (BEAKER) (test jyyx=596) 10.3 GM/DL 11.2-15.7 HEMATOCRIT (BEAKER) (test txhe=109) 30.8 % 34.1-44.9 MEAN CORPUSCULAR VOLUME (BEAKER) (test tjrc=770) 96.0 fL 79.4-94.8 MEAN CORPUSCULAR HEMOGLOBIN (BEAKER) (test onht=038) 32.1 pg 25.6-32.2 MEAN CORPUSCULAR HEMOGLOBIN CONC (BEAKER) (test zgil=012) 33.4 GM/DL 32.2- 35.5 RED CELL DISTRIBUTION WIDTH (BEAKER) (test ckcg=001) 19.0 % 11.7-14.4 PLATELET COUNT (BEAKER) (test zqfr=820) 59 K/CU MM 150-450 MEAN PLATELET VOLUME (BEAKER) (test jsqc=018) 11.9 fL 9.4-12.3 NUCLEATED RED BLOOD CELLS (BEAKER) (test jkzv=615) 0 /100 WBC 0-0 NEUTROPHILS RELATIVE PERCENT (BEAKER) (test fftv=711) 33 % LYMPHOCYTES RELATIVE PERCENT (BEAKER) (test jmvi=554) 54 % MONOCYTES RELATIVE PERCENT (BEAKER) (test ozdw=766) 9 % EOSINOPHILS RELATIVE PERCENT (BEAKER) (test oapr=816) 3 % BASOPHILS RELATIVE PERCENT (BEAKER) (test bhmt=059) 1 % NEUTROPHILS ABSOLUTE COUNT (BEAKER) (test dpsr=871) 1.63 K/ L 1.56-6.13 LYMPHOCYTES ABSOLUTE COUNT (BEAKER) (test mgbg=411) 2.63 K/ L 1.18-3.74 MONOCYTES ABSOLUTE COUNT (BEAKER) (test ycqu=202) 0.42 K/ L 0.24-0.36 EOSINOPHILS ABSOLUTE COUNT (BEAKER) (test irjq=554) 0.16 K/ L 0.04-0.36 BASOPHILS ABSOLUTE COUNT (BEAKER) (test hzbv=276) 0.03 K/ L 0.01-0.08 IMMATURE GRANULOCYTES-RELATIVE PERCENT (BEAKER) (test aqxg=0819) 0 % 0-1 (MANUAL DIFFERENTIAL)2017-06-17 15:05:00* Test Item Value Reference Range Comments TOTAL COUNTED (BEAKER) (test yksz=9908) ANTI-NUCLEAR ANTIBODY (EMIR)2017-01-08 14:40:00* Test Item Value Reference Range Comments ANTI-NUCLEAR ANTIBODY (EMIR) (BEAKER) (test cdbn=594) Negative Negative IMMUNOGLOBULIN G (IGG)2017-01-08 09:27:00* Test Item Value Reference Range Comments IMMUNOGLOBULIN G (IGG) (BEAKER) (test ddnb=272) 658 mg/dL 540-1822 IRON, TIBC, % SAT. (WITHOUT FERRITIN)2017-01-08 09:27:00* Test Item Value Reference Range Comments IRON (BEAKER) (test reeu=378) 61 ug/dL 40-160 TOTAL IRON BINDING CAPACITY (BEAKER) (test xlgq=531) 360 ug/dL 250-450 IRON % SATURATION (2) (BEAKER) (test rnqu=5644) 17 % 20-55 [id number] 22:04:00* Test Item Value Reference Range Comments FERRITIN (BEAKER) (test czbq=082) 33 ng/mL 5-275 Effective 06/26/2014: Reference Range ChangeNew: Male 5-275 Previous: Male 22-322 Female 5-275 Female 10-291 HEPATITIS B SURFACE [id number] 21:05:00* Test Item Value Reference Range Comments HEPATITIS B SURFACE ANTIBODY (BEAKER) (test nsuq=995) < mIU/mL <8.0 HEPATITIS A ANTIBODY, [id number] 21:05:00* Test Item Value Reference Range Comments HEPATITIS A IGG ANTIBODY (BEAKER) (test uabc=8027) Reactive Nonreactive ALPHA FETOPROTEIN (AFP), TUMOR [id number] 21:03:00* Test Item Value Reference Range Comments ALPHA-FETOPROTEIN (BEAKER) (test gdot=3969) 4.7 ng/mL <10.0 Effective 06/26/2014: Reference Range ChangeNew: <10.0 Previous: 0.0- 8.0HEPATITIS B CORE ANTIBODY, [id number] 21:03:00* Test Item Value Reference Range Comments HEPATITIS B CORE TOTAL ANTIBODY (BEAKER) (test tkyo=535) Nonreactive Nonreactive CBC W/PLT COUNT & AUTO [id number] 16:10:00* Test Item Value Reference Range Comments WHITE BLOOD CELL COUNT (BEAKER) (test poog=505) 4.3 K/ L 4.0-10.0 RED BLOOD CELL COUNT (BEAKER) (test vlrg=816) 2.96 M/ L 4.00-5.00 HEMOGLOBIN (BEAKER) (test yddh=421) 9.6 GM/DL 12.0-15.0 HEMATOCRIT (BEAKER) (test vgtd=532) 28.6 % 36.0-45.0 MEAN CORPUSCULAR VOLUME (BEAKER) (test tctg=818) 96.8 fL 82.0-99.0 MEAN CORPUSCULAR HEMOGLOBIN (BEAKER) (test zxtf=838) 32.5 pg 27.0-33.0 MEAN CORPUSCULAR HEMOGLOBIN CONC (BEAKER) (test wunz=214) 33.6 GM/DL 32.0- 36.0 RED CELL DISTRIBUTION WIDTH (BEAKER) (test qsup=160) 14.9 % 10.3-14.2 PLATELET COUNT (BEAKER) (test iylp=882) 61 K/CU MM 150-430 MEAN PLATELET VOLUME (BEAKER) (test juon=786) 8.5 fL 6.5-10.5 NEUTROPHILS RELATIVE PERCENT (BEAKER) (test ynyv=918) 26 % LYMPHOCYTES RELATIVE PERCENT (BEAKER) (test tvau=047) 64 % MONOCYTES RELATIVE PERCENT (BEAKER) (test peie=055) 8 % EOSINOPHILS RELATIVE PERCENT (BEAKER) (test egrh=635) 2 % BASOPHILS RELATIVE PERCENT (BEAKER) (test tbuj=601) 0 % NEUTROPHILS ABSOLUTE COUNT (BEAKER) (test jfxh=778) 1.10 K/ L 1.80-8.00 LYMPHOCYTES ABSOLUTE COUNT (BEAKER) (test wcoc=854) 2.73 K/ L 1.48-4.50 MONOCYTES ABSOLUTE COUNT (BEAKER) (test beut=107) 0.33 K/ L 0.00-1.30 EOSINOPHILS ABSOLUTE COUNT (BEAKER) (test ndeb=598) 0.08 K/ L 0.00-0.50 BASOPHILS ABSOLUTE COUNT (BEAKER) (test izaf=454) 0.02 K/ L 0.00-0.20 COMPREHENSIVE METABOLIC [id number] 15:58:00* Test Item Value Reference Range Comments TOTAL PROTEIN (BEAKER) (test dnfo=415) 6.1 gm/dL 6.0-8.3 ALBUMIN (BEAKER) (test ncif=1003) 2.9 g/dL 3.5-5.0 ALKALINE PHOSPHATASE (BEAKER) (test lvzr=127) 161 U/L 40-150 BILIRUBIN TOTAL (BEAKER) (test bpdu=568) 1.1 mg/dL 0.2-1.2 SODIUM (BEAKER) (test lvel=393) 142 meq/L 136-145 POTASSIUM (BEAKER) (test vouu=853) 3.5 meq/L 3.5-5.1 CHLORIDE (BEAKER) (test hoeb=220) 113 meq/L 98-107 CO2 (BEAKER) (test ygyl=631) 20 meq/L 22-29 BLOOD UREA NITROGEN (BEAKER) (test wzhp=831) 10 mg/dL 7-21 CREATININE (BEAKER) (test kdyc=494) 0.76 mg/dL 0.57-1.25 GLUCOSE RANDOM (BEAKER) (test udky=028) 91 mg/dL 70-105 CALCIUM (BEAKER) (test ocbi=378) 8.1 mg/dL 8.4-10.2 AST (SGOT) (BEAKER) (test cuzh=689) 48 U/L 5-34 ALT (SGPT) (BEAKER) (test knnr=841) 21 U/L 6-55 EGFR (BEAKER) (test wkyk=4200) 76 mL/min/1.73 sq m ESTIMATED GFR IS NOT ACCURATE CREATININE CLEARANCE IN PREDICTING GLOMERULAR FILTRATION RATE. ESTIMATED GFR IS NOT APPLICABLE FOR DIALYSIS PATIENTS. BILIRUBIN, [id number] 15:57:00* Test Item Value Reference Range Comments BILIRUBIN DIRECT (BEAKER) (test heyj=824) 0.6 mg/dL 0.1-0.5 PROTHROMBIN [id number] 14:53:00* Test Item Value Reference Range Comments PROTIME (BEAKER) (test gjcg=217) 17.4 seconds 11.7-14.7 INR (BEAKER) (test immq=184) 1.4 <=5.9 RECOMMENDED COUMADIN/WARFARIN INR THERAPY RANGESSTANDARD DOSE: 2.0 - 3.0 Includes: PROPHYLAXIS for venous thrombosis, systemic embolization; TREATMENT for venous thrombosis and/or pulmonary embolus.HIGH RISK: Target INR is 2.5-3.5 for patients with mechanical heart valves.
--- OUTSIDE RECORDS SUMMARY | 2017-10-14 13:50 | XMS REPORT | Clinical Summary ---
Author Author [facility] Organization [facility] Address Unknown Phone Unavailable Care Team Providers Care Press Assistant And Feeder Name Role Phone PCP Unavailable Allergies No Known Allergies Current Medications Prescription Sig. Disp. Refills Start End Date Status Date propranolol (INDERAL) 10 Take 10 mg by mouth 2 Active MG tablet (two) times daily. multivitamin per tablet Take 1 tablet by mouth Active daily. magnesium oxide (MAG-OX) Take 800 mg by mouth 2 Active 400 mg tablet (two) times daily. cyanocobalamin (VITAMIN Take 500 mcg by mouth Active B-12) 500 MCG tablet daily. thiamine (VITAMIN B-1) Take 250 mg by mouth Active 250 MG tablet daily. aspirin 81 MG EC tablet Take 81 mg by mouth Active daily. folic acid (FOLVITE) 1 MG Take 1 tablet (1 mg 90 tablet 1 07/15/20 Active tabletIndications: total) by mouth daily. 17 Alcoholic cirrhosis of liver without ascites (HCC) spironolactone Take 1 tablet (25 mg 30 tablet 2 07/15/20 Active (ALDACTONE) 25 MG total) by mouth daily. 17 tabletIndications: Alcoholic cirrhosis of liver without ascites (HCC) furosemide (LASIX) 20 MG Take 1 tablet (20 mg 30 tablet 2 07/15/20 Active tabletIndications: total) by mouth daily. 17 Alcoholic cirrhosis of liver without ascites (HCC) rifAXIMin 550 mg Take 1 tablet (550 mg 60 tablet 3 07/15/20 Active TabIndications: Alcoholic total) by mouth 2 (two) 17 cirrhosis of liver times daily. without ascites (HCC) lactulose (CHRONULAC) 10 Take 20 g by mouth 3 Active gram/15 mL (15 mL) (three) times daily. solution rifAXIMin 550 mg Tab Take 1 tablet (550 mg 60 tablet 0 01/08/2009/28 Discontin total) by mouth 2 (two) 17 17 ued times daily for 30 days. lactulose (CHRONULAC) 10 Take 30 g by mouth. 12/30/19 06/17/20 Discontin gram/15 mL solution 17 17 ued propranolol (INDERAL) 10 Take 20 mg by mouth. 12/15/19 06/17/20 Discontin MG tablet 17 17 ued mirtazapine (REMERON) 15 Take 15 mg by mouth. 02/28/20 06/17/20 Discontin MG tablet 16 17 ued rifAXIMin 550 mg Tab Take 1 tablet (550 mg 60 tablet 5 01/09/2009/28 total) by mouth 2 (two) 17 17 times daily for 30 days. furosemide (LASIX) 20 MG Take 20 mg by mouth 07/15/20 Discontin tablet daily. 17 ued spironolactone Take 25 mg by mouth 07/15/20 Discontin (ALDACTONE) 25 MG tablet daily. 17 ued folic acid (FOLVITE) 1 MG Take 1 mg by mouth daily. 07/15/20 Discontin tablet 17 ued LACTULOSE ORAL Take by mouth 2 (two) 06/19/20 Discontin times daily Dose unknown 17 ued per patient. . lactulose (CHRONULAC) 20 Take 30 mLs (20 g total) 2700 mL 1 06/19/20 07/19/20 gram/30 mL solution by mouth 3 (three) times 17 17 daily for 30 days. rifAXIMin 550 mg Tab Take 1 tablet (550 mg 60 tablet 1 06/19/2002/25 Discontin total) by mouth 2 (two) 17 17 ued times daily for 30 days. PEG Take 1 packet by mouth 1 packet 0 09/01/19 09/01/19 [id number] once for 1 dose. 18 18 C (MOVIPREP) 100-7.5-2.691 gram PwPk packet Active Problems Problem Noted Date Diarrhea 07/15/2017 History of alcohol abuse 07/15/2017 Hyperbilirubinemia 06/17/2017 Thrombocytopenia (HCC) 06/17/2017 Alcoholic cirrhosis 01/07/2017 Portal hypertension 01/07/2017 Hepatic encephalopathy 01/07/2017 Immunity status testing 01/07/2017 Screening for malignant neoplasm 01/07/2017 Encounters Date Type Specialty Care Team Description 10/13/2017 Telephone Transplant Hepatology Adriana Maravilla RN call 09/30/2017 Orders Only Transplant HepatAdriana Ramirez RN Screening for malignant neoplasm (Primary Dx) 09/27/2017 Telephone Transplant Hepatology Adriana Maravilla RN MRB results review 09/26/2017 Emergency Emergency Medicine Mick Betancur MD Vaginal bleeding (Primary Dx) 09/24/2017 Abstract Transplant Hepatology Meghan Buckley 09/24/2017 Abstract Transplant Hepatology Meghan Buckley 09/23/2017 Abstract Hepatology Sarina Arora MA 09/16/2017 Emergency Emergency Medicine - 09/17/2017 09/16/2017 Documentation Transplant Hepatology Juana Braswell RN 09/16/2017 Documentation Transplant Hepatology Jet Byrd [facility] 09/13/2017 [facility] Gastroenterology Rhys Clark MD Encounter 09/13/2017 Anesthesia Gastroenterology Yamil Mccall MD Event 09/13/2017 Procedure Pass Gastroenterology 09/13/2017 Surgery Gastroenterology Rhys Clark MD COLONOSCOPY,BIOPSY 09/09/2017 [facility] Pre-Admission Testing Rhys Clark MD Encounter 09/08/2017 Documentation Transplant Hepatology Adriana Maravilla RN 09/06/2017 [facility] Charge Transplant Hepatology Lamberto Guillory MD Visit Provider, [facility] Registry Generic 09/02/2017 Documentation Transplant Hepatology Meghan Buckley 09/01/2017 [facility] Katina Cedeño MD Pre-transplant evaluation Encounter for liver transplant 09/01/2017 [facility] Katina Cedeño MD Pre-transplant evaluation Encounter for liver transplant 09/01/2017 [facility] Katina Cedeño MD Pre-transplant evaluation Encounter for liver transplant 09/01/2017 Social Work Transplant Hepatology Katina Cedeño MD Kremer, Robin M, PROFESSIONAL SERVICES MANAGER 09/01/2017 Evaluation Transplant Hepatology Katina Cedeño MD Cook, Amy 09/01/2017 Follow-Up Transplant Hepatology Katina Cedeño MD Goss, John Alan, MD 09/01/2017 Orders Only Transplant Hepatology Katina Cedeño MD Pre-transplant evaluation for liver transplant 09/01/2017 Office Visit Lab Katina Cedeño MD Canceled ( Provider) 09/01/2017 Office Visit Lab Katina Cedeño MD Canceled (Error) 09/01/2017 [facility] Radiology Katina Cedeño MD Pre-transplant evaluation Encounter for liver transplant 09/01/2017 Orders Only Hepatology Gabriella Apodaca RN Colon cancer screening (Primary Dx) 09/01/2017 Outside Orders Katina Cedeño MD 08/31/2017 Telephone Transplant Hepatology [place] Liver Transplant Pre-evaluation (Spoke with Mehreen, pt liver txp eval confirmed. ) 08/26/2017 Telephone Transplant Hepatology Adriana Maravilla RN Follow -up 08/18/2017 Telephone Transplant Hepatology Saira Webber Appointment (r/s work up) 08/18/2017 Telephone Central Scheduling Saira Webber 08/17/2017 Telephone Transplant Hepatology Saira Webber Appointment (reschedule liver work up) 07/28/2017 Orders Only Transplant HepatAdriana Ramirez RN Pre- transplant evaluation for liver transplant (Primary Dx) 07/23/2017 Telephone Hepatology Nora Lan Procedure (EGD/Colonoscopy) 07/23/2017 Telephone Transplant Hepatology [place] Liver Transplant Pre-evaluation (Spoke with Mehreen, liver txp eval scheduled. Itinerary mailed to pt.) 07/20/2017 Documentation Transplant Rani Wright MA 07/16/2017 Abstract Transplant Hepatology Lamberto Guillory MD 07/15/2017 Office Visit Hepatology Rhys Clark MD Alcoholic cirrhosis (Primary Dx);Diarrhea, unspecified type;Portal hypertension;Hepatic encephalopathy;Immunity status testing;Screening for malignant neoplasm;History of alcohol abuse 07/15/2017 Orders Only Hepatology Brittany London RN Alcoholic cirrhosis (Primary Dx);Diarrhea, unspecified type 06/17/2017 [facility] General Internal Medicine Lamberto Cotton MD Alcoholic cirrhosis - Encounter LondonMisbah MD (Primary Dx);Hepatic 06/20/2017 Evita Fonseca MD encephalopathy;Portal [place] Crook MD hypertension (HCC);Hyperbilirubinemia; Thrombocytopenia (HCC);Screening for malignant neoplasm 06/17/2017 Orders Only General Internal Medicine 06/17/2017 Documentation Hepatology Dariela Forbes FNP 02/12/2017 Abstract Transplant Rani Wright MA 02/11/2017 Abstract Hepatology Justine Cartwright RN 01/12/2017 Documentation Hepatology Jabari Luis 01/07/2017 Office Visit Hepatology Rhys Clark MD Alcoholic cirrhosis (Primary Dx);Portal hypertension;Hepatic encephalopathy;Immunity status testing;Screening for malignant neoplasm after 10/13/2016 Family History Medical History Relation Name Comments Cancer Mother Heart disease Mother Parkinsonism Mother Relation Name Status Comments Mother Social History Tobacco Use Types Packs/Day Years Used Date Never Smoker Smokeless Tobacco: Never Used Alcohol Use Drinks/Week oz/Week Comments No Sex Assigned at Date Recorded Not on file Last Filed Vital Signs Vital Sign Reading Time Taken Blood Pressure 180/88 09/26/2017 7:40 PM EXPENSE CLERK Pulse 72 09/26/2017 7:40 PM EXPENSE CLERK Temperature 36.7 C (98.1 F) 09/26/2017 7:40 PM EXPENSE CLERK Respiratory Rate 22 09/26/2017 7:40 PM EXPENSE CLERK Oxygen Saturation 98% 09/26/2017 7:40 PM EXPENSE CLERK Inhaled Oxygen - - Concentration Weight 59.4 kg (131 lb) 09/26/2017 5:02 PM EXPENSE CLERK Height 149.9 cm (4' 11") 09/26/2017 5:02 PM EXPENSE CLERK Body Mass Index 26.46 09/26/2017 5:02 PM EXPENSE CLERK Plan of Treatment Date Type Specialty Care Team Description 11/23/2017 Follow-Up Transplant Hepatology Health Maintenance Due Date Last Done Comments INFLUENZA VACCINE 05/09/2017 Procedures Procedure Name Priority Date/Time Associated Diagnosis Comments UPPER ENDOSCOPY,BANDING 09/13/2017 Cirrhosis of liver 10:00 AM EXPENSE CLERK without ascites, unspecified hepatic cirrhosis type (HCC) UPPER ENDOSCOPY,BIOPSY 09/13/2017 Cirrhosis of liver 10:00 AM EXPENSE CLERK without ascites, unspecified hepatic cirrhosis type (HCC) COLONOSCOPY,BIOPSY 09/13/2017 Cirrhosis of liver 10:00 AM EXPENSE CLERK without ascites, unspecified hepatic cirrhosis type (HCC) after 10/13/2016 Results * Manual Differential (09/26/2017 6:14 PM) Only the most recent of 6 results within the time period is included. Component Value Ref Range % Neutros (manual) 78 % % Lymphs (manual) 9 % % Monos (manual) 7 % % Eos (manual) 3 % % Bands (manual) 3 0 - 10 % # Neutros (manual) 3.04 1.80 - 8.00 K/ L # Lymphs (manual) 0.35 (L) 1.48 - 4.50 K/ L # Monos (manual) 0.27 0.00 - 1.30 K/ L # Eos (manual) 0.12 0.00 - 0.50 K/ L # Bands (manual) 0.1 0.0 - 0.8 K/ L Total Counted 100 Bands plus Segmented 3.16 Neutrophils WBC Morphology Normal Platelet Morphology Normal Ovalocytes 1+ few Tear Drop Cells 1+ few Specimen Performing Laboratory Blood - Arm, [address] [address] * PT/aPTT (09/26/2017 6:14 PM) Component Value Ref Range Protime 23.1 (H) 11.7 - 14.7 seconds INR 2.1 <=5.9 PTT 42.7 (H) 22.5 - 36.0 seconds Specimen Performing Laboratory Blood - Arm, [address] [address] Narrative RECOMMENDED COUMADIN/WARFARIN INR THERAPY RANGES STANDARD DOSE: 2.0 - 3.0 Includes: PROPHYLAXIS for venous thrombosis, systemic embolization; TREATMENT for venous thrombosis and/or pulmonary embolus. HIGH RISK: Target INR is 2.5-3.5 for patients with mechanical heart valves. * CBC with platelet count + automated diff (09/26/2017 6:14 PM) Only the most recent of 8 results within the time period is included. Component Value Ref Range WBC 3.9 3.5 - 10.5 K/ L RBC 2.73 (L) 3.93 - 5.22 M/ L Hemoglobin 9.3 (L) 11.2 - 15.7 GM/DL Hematocrit 27.3 (L) 34.1 - 44.9 % MCV 100.0 (H) 79.4 - 94.8 fL MCH 34.1 (H) 25.6 - 32.2 pg MCHC 34.1 32.2 - 35.5 GM/DL RDW 16.3 (H) 11.7 - 14.4 % Platelets 50 (L) 150 - 450 K/CU MM MPV 11.2 9.4 - 12.3 fL nRBC 0 0 - 0 /100 WBC Immature 1 0 - 1 % Granulocytes-Relative Specimen Performing Laboratory Blood - Arm, [place] [id number] * CBC with platelet count + automated diff (09/26/2017 6:14 PM) Only the most recent of 8 results within the time period is included. Specimen Performing Laboratory Blood Narrative The following orders were created for panel order CBC with platelet count + automated diff. Procedure Abnormality Status --------- - ------ CBC with platelet count ...[[id number]]AbnormalFinal result Manual Differential[[id number]]Abnormal Final result Please view results for these tests on the individual orders. * Basic Metabolic Panel (09/26/2017 6:14 PM) Only the most recent of 6 results within the time period is included. Component Value Ref Range Sodium 136 136 - 145 meq/L Potassium 3.1 (L) 3.5 - 5.1 meq/L Chloride 108 (H) 98 - 107 meq/L CO2 19 (L) 22 - 29 meq/L BUN 11 7 - 21 mg/dL Creatinine 0.68 0.57 - 1.25 mg/dL Glucose 105 70 - 105 mg/dL Calcium 7.6 (L) 8.4 - 10.2 mg/dL EGFR 87Comment: ESTIMATED GFR IS NOT ACCURATE mL/min/1.73 sq m CREATININE CLEARANCE IN PREDICTING GLOMERULAR FILTRATION RATE. ESTIMATED GFR IS NOT APPLICABLE FOR DIALYSIS PATIENTS. Specimen Performing Laboratory Blood - Arm, [place] [id number] * XR chest 1 view portable / bedside (09/16/2017 11:02 PM) Only the most recent of 2 results within the time period is included. Specimen Performing Laboratory [facility] RIS Narrative FINAL REPORT INDICATION: SHORTNESS OF BREATH COMPARISON: September 01, 2017 TECHNIQUE: Single frontal view of the chest. FINDINGS: Lungs and pleura: Faint right infrahilar airspace disease. No effusion. Heart and mediastinum: Normal heart size. Unremarkable mediastinal contours. Osseous structures: No acute abnormality. Other: None. IMPRESSION: Right infrahilar airspace disease is nonspecific. This may reflect under inspiration or developing pneumonia in the appropriate clinical context. Signed: JR Dc Robert MD Report Verified Date/Time:09/16/2017 23:08:11 Reading Location: [address] Reading Room Procedure Note Interface, External Ris In - 09/16/2017 11:10 PM EXPENSE CLERK FINAL REPORT INDICATION: SHORTNESS OF BREATH COMPARISON: September 01, 2017 TECHNIQUE: Single frontal view of the chest. FINDINGS: Lungs and pleura: Faint right infrahilar airspace disease. No effusion. Heart and mediastinum: Normal heart size. Unremarkable mediastinal contours. Osseous structures: No acute abnormality. Other: None. IMPRESSION: Right infrahilar airspace disease is nonspecific. This may reflect under inspiration or developing pneumonia in the appropriate clinical context. Signed: JR Dc Robert MD Report Verified Date/Time: 09/16/2017 23:08:11 Reading Location: [address] Reading Room * Clostridium difficile Toxin PCR (09/13/2017 12:33 PM) Component Value Ref Range C.Diff Toxin, PCR Not Detected Not Detected Specimen Performing Laboratory Body [place] [address] Narrative This qualitative real-time polymerase chain reaction assay detects the tcdB gene , encoded on the C.difficile pathogenicity locus (PaLoc).The product of tcdB , toxin B, is a cytotoxin essential for causing C.difficile-associated disease ( CDAD) and is found in virtually all toxigenic C.difficile. This assay is performed for patients suspected of having either community- acquired or nosocomial CDAD.Accordingly, only symptomatic patients should be tested and formed stools will be rejected unless ileus is present (i.e., specified when ordering).Patients may be colonized with toxigenic C.difficile strains not causing active disease; therefore, clinical correlation is needed when deciding how to manage patients with a positive test result. The assay has not been validated as a test of cure as amplifiable nucleic acid may persist after effective treatment; therefore, follow-up testing of a positive result is not recommended. * STRONGYLOIDES, MICROSPORA, ISOSPORA,CRYPTOSPORA (09/13/2017 12:33 PM) Only the most recent of 3 results within the time period is included. Component Value Ref Range Scan Result Specimen Performing Laboratory Body Fluid - Stool [facility] [id number] [place] [address] * Ova and Parasite Examination (09/13/2017 12:33 PM) Component Value Ref Range O&P Direct Smear No ova or parasites seen No ova or parasites seen O&P Concentrate Smear No ova or parasites seen No ova or parasites seen O&P Trichrome Smear No ova or parasites seen No ova or parasites seen Specimen Performing Laboratory Body [place] [address] * REPORT OF PROCEDURE - ENDOSCOPY URL (09/13/2017 12:18 PM) Only the most recent of 2 results within the time period is included. * Tissue Exam (09/13/2017 11:23 AM) Component Value Ref Range Case Report Surgical Pathology Report Case: [id number] Authorizing Provider: Rhys Clark MD Collected: 09/13/2017 1123 Ordering Location: [facility] Endoscopy Received: 09/13/2017 1442 Services Pathologist: Rosalva Shine MD Specimens: A) - Stomach, Antrum B) - Biopsy, Terminal Ileum, bx check for CMV C) - Large Intestine, Colon - Right/Ascending, bx check for CMV D) - Large Intestine, Colon - Left/Descending, bx check for CMV DIAGNOSIS A.STOMACH, ANTRUM, ENDOSCOPIC BIOPSY: - CONSISTENT WITH PORTAL GASTROPATHY - CHRONIC GASTRITIS - NO HELICOBACTER PYLORI-LIKE ORGANISMS SEEN ON WARTHIN-STARRY STAIN - NO INTESTINAL METAPLASIA, DYSPLASIA OR MALIGNANCY NOTED - IMMUNOHISTOCHEMICAL STAIN FOR HELICOBACTER IS NEGATIVE B.TERMINAL ILEUM, ENDOSCOPIC BIOPSY: - NO PATHOLOGIC ALTERATION - NO VILLUS BLUNTING, GRANULOMAS, DYSPLASIA OR MALIGNANCY SEEN - NEGATIVE FOR CMV BY IMMUNOHISTOCHEMISTRY C.COLON, RIGHT/ASCENDING, ENDOSCOPIC BIOPSY: - NO PATHOLOGIC ALTERATION - NO SIGNIFICANT ARCHITECTURAL DISTORTION SEEN - NO INCREASED CHRONIC INFLAMMATION PRESENT - NO VIRAL INCLUSIONS, FEATURE OF MICROSCOPIC COLITIS, DYSPLASIA OR MALIGNANCY PRESENT - NEGATIVE FOR CMV BY IMMUNOHISTOCHEMISTRY D.COLON, LEFT/DESCENDING, ENDOSCOPIC BIOPSY: - NO PATHOLOGIC ALTERATION - NO SIGNIFICANT ARCHITECTURAL DISTORTION SEEN - NO INCREASED CHRONIC INFLAMMATION PRESENT - NO VIRAL INCLUSIONS, FEATURE OF MICROSCOPIC COLITIS, DYSPLASIA OR MALIGNANCY PRESENT - NEGATIVE FOR CMV BY IMMUNOHISTOCHEMISTRY Signing Pathologist Direct Phone Line: [phone] CPT Code(s) 52294 X 4; 42129; 43734 X 4 CLINICAL HISTORY Cirrhosis of liver without ascites, diarrhea, check for CMV SPECIMEN SOURCE A. Stomach antrum. B. Terminal ileum biopsy. C. Right ascending colon biopsy. D. Left descending colon biopsy GROSS DESCRIPTION Specimen is received in four containers of formalin all labeled with the patient's information and medical record number. Specimen A: Labeled "stomach antrum" consists of four fragments of foster-white soft tissue ranging from less than 0.1 to 0.2 cm, submitted in A1. Specimen B: Labeled "terminal ileum biopsy" consists of a 0.2 cm fragment of foster tissue submitted in B1. Specimen C: Labeled "right ascending colon biopsy" consists of multiple fragments of foster tissue ranging from less than 0.1 to 0.2 cm, submitted entirely in C1. Specimen D: Labeled "left descending colon biopsy" consists of multiple fragments of foster-white red soft tissue ranging less than 0.1 from 0.3, submitted entirely in D1. CG/ew SPECIAL STUDIES The following special studies were performed on this case and the interpretation is incorporated in the diagnostic report above: WARTHIN-STARRY; HELICOBACTER PYLORI; CMV X 3 The immunohistochemistry test was developed and its performance characteristics determined by [facility], Pathology Laboratory. It has not been cleared [...] qualified to perform high complexity clinical laboratory testing. Specimen Performing Laboratory Tissue - Stomach, [facility] Antrum; Tissue - Biopsy, [address] [place] [address] Terminal Ileum; [place] [address] Large Intestine, Colon - Right/Ascending; Tissue - Large Intestine, Colon - Left/Descending * TRANSFUSION SERVICE REPORT - SCAN (09/02/2017 5:44 PM) Only the most recent of 2 results within the time period is included. * XR mandible 4 views min (09/01/2017 12:52 PM) Specimen Performing Laboratory [employer] RIS Narrative FINAL REPORT Mandible series, five images HISTORY: Liver transplant COMPARISON: None IMPRESSION: Patient is edentulous. Mandible intact. Temporomandibular joints unremarkable. The nasal sinuses and mastoid air cells clear. Atherosclerosis noted. Soft tissues otherwise unremarkable. Signed: Akiko Mackey MD Report Verified Date/Time:09/01/2017 13:02:39 Reading Location: [address] Radiology Reading Room Procedure Note Interface, External Ris In - 09/01/2017 1:04 PM EXPENSE CLERK FINAL REPORT Mandible series, five images HISTORY: Liver transplant COMPARISON: None IMPRESSION: Patient is edentulous. Mandible intact. Temporomandibular joints unremarkable. The nasal sinuses and mastoid air cells clear. Atherosclerosis noted. Soft tissues otherwise unremarkable. Signed: Akiko Mackey MD Report Verified Date/Time: 09/01/2017 13:02:39 Reading Location: [address] Radiology Reading Room * XR dxa bone density study (09/01/2017 12:50 PM) Specimen Performing Laboratory [employer] [facility] Narrative FINAL REPORT Bone mineral density study, 09/01/2017. CLINICAL INDICATION: Liver transplant evaluation. COMPARISON: None. FINDINGS: Bone densitometry of the femoral necks and lumbar spine was performed. The left femoral neck bone mineral density is 0.832 gm/cm2, the T-score is -1.5, and the Z-score is 0.2. The right femoral neck total bone mineral density is 0.827 gm/cm2, the T-score is -1.5, and the Z-score is 0.2. The lumbar spine total bone mineral density is 0.752 gm/cm2, the T-score is -3.6, and the Z-score is -1.8. IMPRESSION: 1. WHO classification of osteopenia for the left femoral neck with an increased risk of fracture. 2. WHO classification of osteopenia for the right femoral neck with an increased risk of fracture. 3. WHO classification of osteoporosis for the lumbar spine with a high risk of fracture. Signed: Akiko Makcey MD Report Verified Date/Time:09/01/2017 13:53:47 Reading Location: [address] Radiology Reading Room Procedure Note Interface, External Ris In - 09/01/2017 1:56 PM EXPENSE CLERK FINAL REPORT Bone mineral density study, 09/01/2017. CLINICAL INDICATION: Liver transplant evaluation. COMPARISON: None. FINDINGS: Bone densitometry of the femoral necks and lumbar spine was performed. The left femoral neck bone mineral density is 0.832 gm/cm2, the T-score is -1.5, and the Z-score is 0.2. The right femoral neck total bone mineral density is 0.827 gm/cm2, the T-score is -1.5, and the Z-score is 0.2. The lumbar spine total bone mineral density is 0.752 gm/cm2, the T-score is -3.6, and the Z-score is -1.8. IMPRESSION: 1. WHO classification of osteopenia for the left femoral neck with an increased risk of fracture. 2. WHO classification of osteopenia for the right femoral neck with an increased risk of fracture. 3. WHO classification of osteoporosis for the lumbar spine with a high risk of fracture. Signed: Akiko Mackey MD Report Verified Date/Time: 09/01/2017 13:53:47 Reading Location: [address] Radiology Reading Room * XR chest 2 views (09/01/2017 12:40 PM) Specimen Performing Laboratory [facility] Narrative FINAL REPORT Chest, PA and lateral. History: Liver transplant evaluation. Comparison: 06/17/2017. Discussion:The cardiomediastinal silhouette and pulmonary vasculature are within normal limits. The lungs are clear without evidence of consolidation or effusion.There are no acute osseous abnormalities. The soft tissues are unremarkable. IMPRESSION: No acute cardiopulmonary abnormality. Signed: Akiko Mackey MD Report Verified Date/Time:09/01/2017 12:53:21 Reading Location: [address] Radiology Reading Room Procedure Note Interface, External Ris In - 09/01/2017 12:55 PM EXPENSE CLERK FINAL REPORT Chest, PA and lateral. History: Liver transplant evaluation. Comparison: 06/17/2017. Discussion: The cardiomediastinal silhouette and pulmonary vasculature are within normal limits. The lungs are clear without evidence of consolidation or effusion. There are no acute osseous abnormalities. The soft tissues are unremarkable. IMPRESSION: No acute cardiopulmonary abnormality. Signed: Akiko Mackey MD Report Verified Date/Time: 09/01/2017 12:53:21 Reading Location: [address] Radiology Reading Room * Drug screen, urine, transplant (09/01/2017 9:46 AM) Specimen Performing Laboratory Urine [facility] [id number] * Urinalysis w/Microscopic (09/01/2017 9:46 AM) Only the most recent of 3 results within the time period is included. Component Value Ref Range Color, UA [place] Clarity, UA Hazy Specific [place], UA 1.024 1.001 - 1.035 pH, UA 6.0 5.0 - 8.0 Protein, UA 20 mg/dL (A) Negative Glucose, UA Negative Negative Ketones, UA Negative Negative Bilirubin, UA Negative Negative Blood, UA Negative Negative Nitrite, UA Negative Negative Leukocytes, UA Small (A) Negative Urobilinogen, UA 0.2 0.2 - 1.0 mg/dL RBC, UA 43 /HPF WBC, UA 26 /HPF Mucus [place] Epithel, UA 7 /HPF Crystals, Urine Occasional Yeast Moderate Specimen Source Specimen Performing Laboratory Urine [facility] [address] [address] * T Spot TB (09/01/2017 9:26 AM) Component Value Ref Range T-Spot TB Negative Neg Ctrl Spot Count 0 Panel A Spot 0 Panel B Spot [address] >20 Scan Result Specimen Performing Laboratory Blood [facility] [address] [facility], [address] [place] [address] * Calcium, Ionized (09/01/2017 9:26 AM) Component Value Ref Range Calcium, Ion 0.93 (L) 1.12 - 1.27 mmol/L pH, Blood 7.40 Specimen Performing Laboratory Blood [address] [address] * Cytomegalovirus antibody, IgM (09/01/2017 9:26 AM) Component Value Ref Range CMV IgM Negative Specimen Performing Laboratory [address] [address] * Cryptococcal antigen (09/01/2017 9:26 AM) Component Value Ref Range Cryptococcal Antigen, Negative Negative, Interference Serum Specimen Performing Laboratory [address] [address] * Carbohydrate antigen 19-9 (CA 19-9) (09/01/2017 9:26 AM) Component Value Ref Range CA 19-9 31 <34 U/mL Comment: This test was performed using the Siemens ([employer]) Chemiluminescent method. Values obtained from different assay methods cannot be used interchangeably. CA19-9 levels, regardless of value, should not be interpreted as absolute evidence of the presence or absence of disease. Specimen Performing Laboratory Blood [facility] [address] [address] Narrative Performing Lab [facility] [address] [address] Miri Werner MD, PhD * EBV-VCA antibody, IgM (09/01/2017 9:26 AM) Component Value Ref Range EBV VCA IgM Negative Specimen Performing Laboratory Blood [address] [address] * EBV-VCA antibody, IgG (09/01/2017 9:26 AM) Component Value Ref Range EBV VCA IgG Positive Specimen Performing Laboratory [address] [address] * Vitamin D, 25-Hydroxy (09/01/2017 9:26 AM) Component Value Ref Range Vitamin D 25-Hydroxy 15.5 6.6 - 49.9 ng/mL Specimen Performing Laboratory [address] [address] Narrative Effective 05/19/2017: Reference Range Change New: 6.6-49.9 ng/mL Previous: 13.0-47.8 ng/mL Recommended Vitamin D Target Range: 30.0-40.0 ng/mL * RPR (09/01/2017 9:26 AM) Component Value Ref Range RPR Nonreactive Nonreactive [place] [address] * Cytomegalovirus antibody, IgG (09/01/2017 9:26 AM) Component Value Ref Range CMV IgG Positive [place] [address] * Uric acid (09/01/2017 9:26 AM) Component Value Ref Range Uric Acid 7.8 (H)Comment: Specimen slightly hemolyzed 2.6 - 7.2 mg/dL [place] [address] Narrative Specimen slightly icteric * T3 (09/01/2017 9:26 AM) Component Value Ref Range T3, Total 56 48 - 159 ng/dL Specimen Performing Laboratory [place] [id number] * Transferrin (09/01/2017 9:26 AM) Component Value Ref Range Transferrin 141 (L) 174 - 382 mg/dL [place] [address] Narrative Specimen slightly icteric * TSH (09/01/2017 9:26 AM) Component Value Ref Range TSH 2.02 0.35 - 4.94 uIU/mL Specimen Performing Laboratory [address] [address] * T4 (09/01/2017 9:26 AM) Component Value Ref Range T4, Total 6.1 4.9 - 11.7 ug/dL Specimen Performing Laboratory [place] [id number] * Phosphorus (09/01/2017 9:26 AM) Component Value Ref Range Phosphorus 2.8Comment: Specimen slightly hemolyzed 2.3 - 4.7 mg/dL [place] [address] * Hemoglobin A1c (09/01/2017 9:26 AM) Component Value Ref Range Hemoglobin A1C <3.8 (L) 4.3 - 6.1 % [place] [address] * Gamma Glutamyl Transferase (GGT) (09/01/2017 9:26 AM) Component Value Ref Range GGT 102 (H)Comment: Specimen slightly hemolyzed 9 - 64 U/L [place] [address] Narrative Specimen slightly icteric * Bilirubin, direct (09/01/2017 9:26 AM) Only the most recent of 2 results within the time period is included. Component Value Ref Range Bilirubin, Direct 1.2 (H)Comment: Specimen slightly hemolyzed 0.1 - 0.5 mg /dL [place] [address] * Ethanol (09/01/2017 9:26 AM) Component Value Ref Range Ethanol Lvl <10 <=10 mg/dL [place] [address] * Lipid panel (09/01/2017 9:26 AM) Component Value Ref Range Triglycerides 85Comment: Specimen slightly hemolyzed mg/dL Cholesterol 113Comment: Specimen slightly hemolyzed mg/dL HDL 28 mg/dL LDL Calculated 68 mg/dL Specimen Performing Laboratory [address] [address] Narrative Triglyceride Reference Range: Low Risk <150 [id number] High Risk 200-499 Very High Risk>=500 Cholesterol Reference Range: Low Risk <200 [id number] High Risk>240 HDL Cholesterol Reference Range: Low Risk >=60 High Risk <40 LDL Cholesterol Reference Range: Optimal<100 Near [id number] Dfzz261-262 Very High >=190 Specimen slightly icteric * Comprehensive metabolic panel (09/01/2017 9:26 AM) Only the most recent of 2 results within the time period is included. Component Value Ref Range Protein, Total 5.8 (L)Comment: Specimen slightly hemolyzed 6.0 - 8.3 gm/dL Albumin 2.3 (L)Comment: Specimen slightly hemolyzed 3.5 - 5.0 g/dL Alkaline Phosphatase 187 (H) 40 - 150 U/L Total Bilirubin 2.5 (H)Comment: Specimen slightly hemolyzed 0.2 - 1.2 mg/ dL Sodium 141 136 - 145 meq/L Potassium 3.7Comment: Specimen slightly hemolyzed 3.5 - 5.1 meq/L Chloride 109 (H) 98 - 107 meq/L CO2 22 22 - 29 meq/L BUN 13 7 - 21 mg/dL Creatinine 0.71Comment: Specimen slightly hemolyzed 0.57 - 1.25 mg/dL Glucose 87 70 - 105 mg/dL Calcium 7.9 (L) 8.4 - 10.2 mg/dL AST 64 (H)Comment: Specimen slightly hemolyzed 5 - 34 U/L ALT 32Comment: Specimen slightly hemolyzed 6 - 55 U/L EGFR 82Comment: ESTIMATED GFR IS NOT ACCURATE mL/min/1.73 sq m CREATININE CLEARANCE IN PREDICTING GLOMERULAR FILTRATION RATE. ESTIMATED GFR IS NOT APPLICABLE FOR DIALYSIS PATIENTS. [place] [address] Narrative Specimen slightly icteric * Type and screen, automated (09/01/2017 9:25 AM) Only the most recent of 2 results within the time period is included. Component Value Ref Range ABO/RH AUTOMATED (BEAKER) O POSITIVE Ab Scrn NEGATIVE Specimen Performing Laboratory [address] [address] * HIV-1 Antigen with HIV-1/2 Antibody (09/01/2017 9:25 AM) Component Value Ref Range HIV-1 Antigen with HIV Nonreactive Nonreactive 1&2 Antibody Specimen Performing Laboratory [address] [address] * Hepatitis A antibody, IgM (09/01/2017 9:25 AM) Component Value Ref Range Hep A IgM Nonreactive Nonreactive Specimen Performing Laboratory [address] [address] * Hepatitis B surface antigen (09/01/2017 9:25 AM) Component Value Ref Range hepatitis B Surface Ag Nonreactive Nonreactive Specimen Performing Laboratory Blood [address] [address] * aPTT (09/01/2017 9:25 AM) Component Value Ref Range PTT 37.9 (H) 22.5 - 36.0 seconds Specimen Performing Laboratory Blood [address] [address] * Prothrombin time/INR (09/01/2017 9:25 AM) Only the most recent of 7 results within the time period is included. Component Value Ref Range Protime 19.6 (H) 11.7 - 14.7 seconds INR 1.7 <=5.9 Specimen Performing Laboratory Blood [address] [address] Narrative RECOMMENDED COUMADIN/WARFARIN INR THERAPY RANGES STANDARD DOSE: 2.0 - 3.0 Includes: PROPHYLAXIS for venous thrombosis, systemic embolization; TREATMENT for venous thrombosis and/or pulmonary embolus. HIGH RISK: Target INR is 2.5-3.5 for patients with mechanical heart valves. * Fibrinogen (09/01/2017 9:25 AM) Component Value Ref Range Fibrinogen 108 (L) 225 - 434 mg/dl Specimen Performing Laboratory Blood [address] [address] * Ferritin (09/01/2017 9:25 AM) Only the most recent of 2 results within the time period is included. Component Value Ref Range Ferritin 246 5 - 275 ng/mL Specimen Performing Laboratory Blood [address] [address] * Carcinoembryonic Antigen (CEA) (09/01/2017 9:25 AM) Component Value Ref Range CEA, SERUM 6.6 (H) 0.0 - 5.0 ng/mL Specimen Performing Laboratory Blood [address] [address] * Blood gas, arterial (09/01/2017 9:13 AM) Component Value Ref Range pH, Arterial 7.46 (H) 7.35 - 7.45 pCO2, Arterial 30 (L) 35 - 45 mmHg pO2, Arterial 99 (H) 80 - 90 mmHg O2 Sat, Arterial 97.9 (H) 96.0 - 97.0 % HCO3, Arterial 21 21 - 29 mmol/L Base Excess, Arterial -2.0 -2.0 - 3.0 mmol/L Patient Temperature 37.0 C FIO2 21.0 % Specimen Performing Laboratory Blood, Arterial [facility] [address] [address] * MR abdomen with/without IV contrast (09/01/2017 8:30 AM) Specimen Performing Laboratory [facility] Narrative FINAL REPORT MR of the abdomen dated September [...] signal of the dorsal spine is normal. IMPRESSION: 1. Cirrhosis with splenomegaly and portal hypertension. 2. Suspicious lesion in the segment 7 of the liver. This can be further evaluated with subsequent examination. Signed: Khalida Eldridge MD Report Verified Date/Time:09/01/2017 10:31:11 Reading Location: [facility] B1 C013Y CT Body Reading Room Procedure Note Interface, External Ris In - 09/01/2017 10:33 AM EXPENSE CLERK FINAL REPORT MR of the abdomen dated September [...] signal of the dorsal spine is normal. IMPRESSION: 1. Cirrhosis with splenomegaly and portal hypertension. 2. Suspicious lesion in the segment 7 of the liver. This can be further evaluated with subsequent examination. Signed: Khalida Eldridge MD Report Verified Date/Time: 09/01/2017 10:31:11 Reading Location: [facility] C013Y CT Body Reading Room * POC-Creatinine (09/01/2017 8:03 AM) Component Value Ref Range POC-Creatinine 0.8Comment: TESTED AT [address] 0.6 - 1.3 mg/[place] [address] POC-EGFR 72 mL/min/1.73M2 Specimen Performing [place] [address] * Alpha fetoprotein (AFP), tumor marker (07/15/2017 11:55 AM) Only the most recent of 2 results within the time period is included. Component Value Ref Range Alpha-Fetoprotein 7.6 <10.0 ng/mL Specimen Performing [place] [address] * Hepatic function panel (07/15/2017 11:55 AM) Only the most recent of 5 results within the time period is included. Component Value Ref Range Protein, Total 6.1 6.0 - 8.3 gm/dL Albumin 2.7 (L) 3.5 - 5.0 g/dL Total Bilirubin 2.9 (H) 0.2 - 1.2 mg/dL Bilirubin, Direct 1.7 (H) 0.1 - 0.5 mg/dL Alkaline Phosphatase 192 (H) 40 - 150 U/L AST 56 (H) 5 - 34 U/L ALT 28 6 - 55 U/L Specimen Performing Laboratory Blood [address] [address] Narrative Specimen slightly icteric * Magnesium (06/20/2017 4:43 AM) Only the most recent of 4 results within the time period is included. Component Value Ref Range Magnesium 1.7 1.6 - 2.6 mg/dL Specimen Performing Laboratory Blood - Arm, Left [place] [id number] * Sodium, random urine (06/19/2017 9:37 AM) Component Value Ref Range Sodium Urine 64 meq/L Specimen Performing Laboratory Urine - Urine, [place] [address] Narrative Reference Range: No Normals If possible, please collect urine at around the time of morning labs for comparison purposes If possible, please collect urine at around the time of morning labs for comparison purposes If possible, please collect urine at around the time of morning labs for comparison purposes * Potassium, random urine (06/19/2017 9:37 AM) Component Value Ref Range Potassium Urine 40.9 meq/L Specimen Performing Laboratory Urine - Urine, [place] [address] Narrative Reference Range: No Normals If possible, please collect urine at around the time of morning labs for comparison purposes If possible, please collect urine at around the time of morning labs for comparison purposes If possible, please collect urine at around the time of morning labs for comparison purposes * Chloride, random urine (06/19/2017 9:37 AM) Component Value Ref Range ChlorideUr 78 meq/L Specimen Performing Laboratory Urine - Urine, [place] [address] Narrative Reference Range: No Normals If possible, please collect urine at around the time of morning labs for comparison purposes If possible, please collect urine at around the time of morning labs for comparison purposes If possible, please collect urine at around the time of morning labs for comparison purposes * Blood culture (06/17/2017 4:32 PM) Only the most recent of 2 results within the time period is included. Component Value Ref Range Result Result From Aerobic And Anaerobic Bottles Coagulase negative Staphylococcus (A) Gram Stain Result From aerobic and anaerobic bottles: gram positive cocci in clusters Specimen Performing Laboratory Blood - Arm, Left [facility] [address] [place] [address], [place] [address] Narrative NOT DETECTED Panel is negative for [employer] BCID-detectable organisms. Please refer to traditional culture and sensitivity results as they become available. Other organisms and resistance markers not contained in this PCR panel cannot be excluded and follow-up of traditional culture results is required. This sample was tested at the [facility] Clinical Microbiology Laboratory using the [employer] Blood Culture ID Panel. This test is FDA cleared for in vitro diagnostic use and has been verified and approved by the [facility] Clinical Microbiology laboratory for clinical use. Reference Range: Not Detected * CT brain without IV contrast (06/17/2017 4:03 PM) Specimen Performing Laboratory [facility] Narrative FINAL REPORT CT head without contrast 06/17/2017 4:10 PM CLINICAL HISTORY: headache slurred speech TECHNIQUE: Axial noncontrast CT images through [...] are well aerated. The skull is intact. IMPRESSION: No intracranial hemorrhage or mass effect. Chronic appearing microvascular and involutional changes. If concern for acute pathology persists, further evaluation with MRI is recommended. Signed: Sidney Maria MD Report Verified Date/Time:06/17/2017 16:14:37 Reading Location: [facility] Radiology Reading Room Procedure Note Interface, External Ris In - 06/17/2017 4:16 PM EXPENSE CLERK FINAL REPORT CT head without contrast 06/17/2017 4:10 PM CLINICAL HISTORY: headache slurred speech TECHNIQUE: Axial noncontrast CT images through [...] are well aerated. The skull is intact. IMPRESSION: No intracranial hemorrhage or mass effect. Chronic appearing microvascular and involutional changes. If concern for acute pathology persists, further evaluation with MRI is recommended. Signed: Sidney Maria MD Report Verified Date/Time: 06/17/2017 16:14:37 Reading Location: [facility] Radiology Reading Room * Ammonia (06/17/2017 3:43 PM) Component Value Ref Range Ammonia 78 (H)Comment: Specimen slightly hemolyzed 18 - 72 mol/L Specimen Performing Laboratory Blood - Arm, [place] [address] * ECG 12 lead (06/17/2017 3:10 PM) Only the most recent of 2 results within the time period is included. Specimen Performing Laboratory [employer] Narrative Ventricular Rate 63 BPM Atrial Rate 63 BPM P-R Interval 160 ms QRS Duration 82 ms Q-T Interval 504 ms QTC Calculation(Bazett) 515 ms P [place] 10 degrees R [place] 17 degrees T [place] 26 degrees Sinus rhythm with with sinus arrhythmia Septal infarct (cited on or before 17-JUN-2017) T wave abnormality, consider anterior ischemia Prolonged QT Abnormal ECG When compared with ECG of 17-JUN-2017 15:09, No significant change was found Confirmed by Ana CROSS, MINDY ([id number]) on 06/18/2017 8:06:19 AM Procedure Note Interface, External Ris In - 06/18/2017 8:06 AM EXPENSE CLERK Ventricular Rate 63 BPM Atrial Rate 63 BPM P-R Interval 160 ms QRS Duration 82 ms Q-T Interval 504 ms QTC Calculation(Bazett) 515 ms P [place] 10 degrees R [place] 17 degrees T [place] 26 degrees Sinus rhythm with with sinus arrhythmia Septal infarct (cited on or before 17-JUN-2017) T wave abnormality, consider anterior ischemia Prolonged QT Abnormal ECG When compared with ECG of 17-JUN-2017 15:09, No significant change was found Confirmed by Ana CROSS MICHAEL ([id number]) on 06/18/2017 8:06:19 AM * Troponin I (06/17/2017 2:49 PM) Component Value Ref Range Troponin I <0.01 0.00 - 0.03 ng/mL Specimen Performing Laboratory Blood [address] [address] Narrative Troponin I (TnI) levels must be interpreted [...] failure, acidosis, acute neurological disease, and persistent tachyarrhythmia. * B-type Natriuretic Factor (BNP) (06/17/2017 2:49 PM) Component Value Ref Range BNP 125 (H) 0 - 100 pg/mL Specimen Performing Laboratory Blood [address] [address] * Creatine Kinase (CK), Total and MB (06/17/2017 2:49 PM) Component Value Ref Range Total CK 20 (L) 29 - 200 U/L CK-MB 0.5 0.0 - 6.6 ng/mL MB Relative Index 2.5 % Specimen Performing Laboratory Blood [address] [address] Narrative CK-MB Reference Range: <6.7Normal 6.7-10.0Borderline >10.0 Abnormal * Hepatitis A antibody, IgG (01/07/2017 12:25 PM) Component Value Ref Range Hep A IgG Reactive (A) Nonreactive Specimen Performing Laboratory Blood [address] [address] * Celiac Disease Panel (01/07/2017 12:25 PM) Component Value Ref Range Scan Result Celiac Disease Profile Refer to Celiac Disease Panel results. Autoverification Specimen Performing Laboratory Blood [facility] [address] [place] [address] * CELIAC DISEASE PANEL (01/07/2017 12:25 PM) Component Value Ref Range Interpretation SEE BELOW Comment: No serological evidence of celiac disease. Total serum IgA is elevated. Consider mucosal inflammatory conditions or underlying gammopathy. (tTG) Ab, IgA <1 U/mL Comment: <4 No Antibody Detected > OR=4 Antibody Detected Endomysial Ab IgA TNPComment: TNP-Reflex testing not required. NEGATIVE Endomysial Ab Titer TNPComment: TNP-Reflex testing not required. <1:5 Iga,Serum 1694 (H) 81 - 463 mg/dL (tTG) Ab, IgG TNP U/mL Comment: TNP-Reflex testing not required. <6 No Antibody Detected > OR=6 Antibody Detected Specimen Performing Laboratory Blood [facility] [address] [address] Narrative Performing Lab [facility] [address] [address] Miri Werner MD * Mitochondrial Antibodies, M2 (01/07/2017 12:25 PM) Component Value Ref Range Mitochondria M2 Ab <20.0 See Note: U Comment: Reference Range: NEGATIVE: < OR=20.0 EQUIVOCAL: 20.1-24.9 POSITIVE: > OR=25.0 Specimen Performing Laboratory Blood [facility] [address] [address] Narrative Performing Lab [facility] [address] [address] Miri Werner MD * Iron, TIBC, % sat. (without ferritin) (01/07/2017 12:25 PM) Component Value Ref Range Iron 61 40 - 160 ug/dL TIBC 360 250 - 450 ug/dL Iron % Saturation 17 (L) 20 - 55 % Specimen Performing Laboratory Blood [address] [address] * Actin (Smooth Muscle) Antibody, IgG (01/07/2017 12:25 PM) Component Value Ref Range Anti-Smooth Muscle Ab <20 See Note: U Comment: Reference Range: <20 NEGATIVE > OR=20 POSITIVE Antibodies recognizing actin are the main component of smooth muscle antibodies associated with autoimmune liver disease. Actin antibodies are found in approximately 75% of patients with autoimmune hepatitis (AIH) type 1, approximately 65% of patients with autoimmune cholangitis, approximately 30% of patients with primary biliary cirrhosis, and approximately 2% of healthy people. High values are closely correlated with AIH type 1. Specimen Performing Laboratory Blood [facility] [address] [address] Narrative Performing Lab [facility] [address] [address] Miri Werner MD * Thuwx-5-Blltvlojpmk (01/07/2017 12:25 PM) Component Value Ref Range Dusve-8-Sjvsjvmnjkt 124 83 - 199 mg/dL Specimen Performing Laboratory Blood [facility] [id number] [place] [address] Narrative Performing Lab [facility] [address] [address] Miri Werner MD * Ceruloplasmin (01/07/2017 12:25 PM) Component Value Ref Range Ceruloplasmin 25 18 - 53 mg/dL Comment: Adults: Males: 18-36 mg/dL Females: 18-53 mg/dL Pediatrics: Males (mg/dL) Females (mg/dL) 0-30 Days 8-25 3-28 31 Days-11 Month 15-48 15-43 1-3 Years 25-56 29-54 4-6 Years 29-56 26-54 7-9 Years 25-52 23-48 10-12 Years 21-51 21-48 13-15 Years 20-50 21-46 16-18 Years 20-45 22-50 The pediatric ranges are derived from the following criteria: Chanel SJ, Layla JM, Morelia J et al Pediatric reference ranges for Mnwn-0-Cscvvethlsdlp and ceruloplasmin. Clin. Chem 1997; 43:S1999 Pediatric Reference Ranges, 2nd., [place] Chanelet al. editors. [employer], [place], [place] 1997. Specimen Performing Laboratory Blood [facility] [address] [place] [address] Narrative Performing Lab *[facility], [id number] [place] [id number] Lilliana Weiner MD, FCAP * Hepatitis B core antibody, total (01/07/2017 12:25 PM) Component Value Ref Range Hep B Core Total Ab Nonreactive Nonreactive Specimen Performing Laboratory Blood [address] [address] * Hepatitis B surface antibody (01/07/2017 12:25 PM) Component Value Ref Range Hep B S Ab <8.0 <8.0 mIU/mL Specimen Performing Laboratory Blood [address] [address] * Anti-Nuclear Antibody (EMIR) (01/07/2017 12:25 PM) Component Value Ref Range EMIR Negative Negative Specimen Performing Laboratory Blood [address] [address] * Immunoglobulin G (IgG) (01/07/2017 12:25 PM) Component Value Ref Range IgG 658 540 - 1822 mg/dL Specimen Performing Laboratory Blood [address] [address] after 10/13/2016
[2017-10-14] MEDS ORDERED: ONDANSETRON HCL INJ 2 MG/ML VIAL IV STA ×2 (14:16→18:08)
[2017-10-14] MEDS ORDERED: PANTOPRAZOLE 40 MG 10ML VIAL IV STA (14:16)
[2017-10-14] MEDS ORDERED: SODIUM CHLORIDE 0.9% 1000ML 1,000 ML IV STA (14:16)
[2017-10-14] MEDS ORDERED: FENTANYL CITRATE/PF 100MCG/2 ML INJ IV ONE ×2 (14:30→18:15)
[2017-10-14 15:05] LABS: BASOPHILS % 0.2 % (0.0-1.0); EOSINOPHILS % 0.1 % (0.0-6.0); HEMATOCRIT 29.7 % (34.2-44.1); HEMOGLOBIN 10.4 g/dL (12.0-16.0); LYMPHOCYTES % 36.1 % (18.0-39.1); MEAN CORPUSCULAR HEMOGLOBIN 34.1 pg (28-32); MEAN CORPUSCULAR VOLUME 97.4 fL (81-99); MONOCYTES # (AUTO) 0.8 (0.2-0.8); NEUTROPHILS # (AUTO) 9.6 (2.1-6.9); NEUTROPHILS % 57.8 % (38.7-80.0); PLATELET COUNT 70 x10e3/uL (140-360); RED BLOOD COUNT 3.05 x10e6/uL (3.6-5.1); RED CELL DISTRIBUTION WIDTH 17.2 % (11.7-14.4)
[2017-10-14 15:12] LABS: INR 2.69; PROTHROMBIN TIME 26.9 seconds (11.9-14.5)
[2017-10-14 15:13] LABS: PARTIAL THROMBOPLASTIN TIME 42.1 seconds (23.8-35.5)
[2017-10-14 15:22] LABS: ALBUMIN 1.7 g/dL (3.5-5.0); ALBUMIN/GLOBULIN RATIO 0.5 (0.8-2.0); ANION GAP 14.6 mmol/L (8-16); CALCIUM 7.4 mg/dL (8.4-10.2); CREATININE, SERUM 0.95 mg/dL (0.57-1.11); MAGNESIUM 1.5 MG/DL (1.3-2.1); POTASSIUM 3.6 mmol/L (3.5-5.1)
[2017-10-14 15:42] LABS: CREATINE KINASE MB 0.7 ng/mL (0-5.0); THYROID STIMULATING HORMONE 3.687 uIU/mL (0.350-4.940)
[2017-10-14] MEDS ORDERED: PHYTONADIONE 10 MG/ML AMP SQ ONE (15:45)
[2017-10-14] MEDS ORDERED: THIAMINE HCL INJ 100 MG/ML 2ML VIAL IV ONE (15:45)
[2017-10-14] MEDS ORDERED: MAGNESIUM SULF 1GRAM/DEXTROSE 100 ML IV ONE (15:45)
[2017-10-14] MEDS ORDERED: THIAMINE HCL INJ 100 MG in SODIUM CHLORIDE 0.9% 50ML 50 ML IV SCH (15:45)
--- NOTE | 2017-10-14 16:15 | Diagnostic Imaging Report ---
PROCEDURE: CT ABDOMEN AND PELVIS WITH CONTRAST TECHNIQUE: The abdomen and pelvis were scanned utilizing a multidetector helical scanner from the diaphragm to the lesser trochanter after the IV administration of 100 cc of Isovue 370. Patient refused oral contrast. Coronal and sagittal multiplanar reformations were obtained. COMPARISON: None. INDICATIONS: ABD PAIN FINDINGS: LOWER THORAX: Small left and small to slightly moderate right pleural effusions with associated compressive atelectasis of the lower lobes. HEPATOBILIARY: Nodular hepatic contour with prominence of the caudate lobe, consistent with cirrhosis. No focal lesions. Cholecystectomy clips. No biliary ductal dilation. SPLEEN: Moderate splenomegaly, measuring 16 cm in craniocaudal diameter. No focal lesions. PANCREAS: Moderate pancreatic atrophy. ADRENALS: No adrenal nodules. KIDNEYS/URETERS: No hydronephrosis, stones, or solid mass lesions. PELVIC ORGANS/BLADDER: Bladder is unremarkable. No focal lesions. Uterus is unremarkable. No adnexal masses. PERITONEUM / RETROPERITONEUM: Moderate to large intra-abdominal and pelvic ascites. No free air. LYMPH NODES: No lymphadenopathy. VESSELS: Celiac trunk, superior and inferior mesenteric, and bilateral renal arteries are patent. Portal, superior mesenteric, and splenic veins are patent. Main portal vein is in the upper normal measuring 1.4 cm. GI TRACT: No bowel dilation or evidence of obstruction. No definite wall thickening. BONES AND SOFT TISSUES: No aggressive lytic or sclerotic lesions. Mild to moderate generalized soft tissue edema IMPRESSION: 1. Cirrhotic liver with evidence of portal hypertension manifested by moderate splenomegaly and moderate to large intra-abdominal and pelvic ascites. No focal enhancing lesions in the liver. 2. Small left and [id number] moderate right pleural effusions with associated compressive atelectasis. 3. Bowel shows no dilation or obstruction. Hao Millan M.D. Dictated by: Hao Millan M.D. on 10/14/2017 at 16:15 Electronically approved by: Hao Millan M.D. on 10/14/2017 at 16:16
[2017-10-14 16:46] LABS: EOSINOPHILS % (MANUAL) 1 % (0-7); LYMPHOCYTES % (MANUAL) 16 % (19-48); MONOCYTES % (MANUAL) 1 % (3.4-9.0); NEUTROPHILS % (MANUAL) 81 % (40-74); PLATELET ESTIMATE MODERATELY DECREASED; PLATELET MORPHOLOGY COMMENT NORMAL; RBC MORPHOLOGY COMMENT NORMAL
--- NOTE | 2017-10-14 16:59 | Diagnostic Imaging Report ---
PROCEDURE: A single AP view of the chest. COMPARISON: None. INDICATIONS: LEG SWELLING FINDINGS: See impression. IMPRESSION: 1. exam limited by patient rotation. 2. Hazy opacity over the right hemithorax likely reflects a combination of overlying soft tissue attenuation and/or great artifact. A layering effusion is less likely. No consolidation. Chest PA and lateral may be obtained for further evaluation. 3. Cardiomediastinal silhouette is unremarkable. Pulmonary vasculature is normal. 4. No acute bony abnormalities. Hao Millan M.D. Dictated by: Hao Millan M.D. on 10/14/2017 at 16:59 Electronically approved by: Hao Millan M.D. on 10/14/2017 at 16:59
--- NOTE | 2017-10-14 17:00 | Diagnostic Imaging Report ---
PROCEDURE:FEMUR TWO VIEW MINIMUM RIGHT COMPARISON:None. INDICATIONS:LEG PAIN AND SWELLING FINDINGS: Normal mineralization for age. No acute, displaced fracture or dislocation. Mild degenerative changes in the right hip and knee joints.. No lytic or blastic lesion. Contrast is noted in the bladder. Soft tissues are unremarkable. CONCLUSION: No acute abnormalities. Hao Millan M.D. Dictated by: Hao Millan M.D. on 10/14/2017 at 17:00 Electronically approved by: Hao Millan M.D. on 10/14/2017 at 17:00
--- NOTE | 2017-10-14 17:01 | Diagnostic Imaging Report ---
PROCEDURE:X-RAY RIGHT LOWER LEG COMPARISON:None. INDICATIONS:LEG PAIN AND SWELLING FINDINGS: Normal mineralization for age. No acute displaced fracture or dislocation. No lytic or blastic lesion. Mild degenerative changes in the knee joint. Ankle mortise is preserved. Mild soft tissue swelling around the ankle. CONCLUSION: Mild soft tissue swelling around the ankle without underlying bony abnormalities. Hao Millan M.D. Dictated by: Hao Millan M.D. on 10/14/2017 at 17:01 Electronically approved by: Hao Millan M.D. on 10/14/2017 at 17:01
--- NOTE | 2017-10-14 17:01 | Diagnostic Imaging Report ---
PROCEDURE:X-RAY RIGHT KNEE, THREE OR MORE VIEWS COMPARISON:None. INDICATIONS:LEG PAIN AND SWELLING FINDINGS: Normal mineralization for age. No acute displaced fracture or dislocation. No lytic or blastic lesion. Mild degenerative changes in the right knee joint, with small osteophytes noted in the patella. Questionable mild medial femoral tibial joint space narrowing. Soft tissues are unremarkable. CONCLUSION: No acute abnormalities. Hao Millan M.D. Dictated by: Hao Millan M.D. on 10/14/2017 at 17:02 Electronically approved by: Hao Millan M.D. on 10/14/2017 at 17:02
[2017-10-14 17:17] LABS: BILIRUBIN,URINE 1+ (NEGATIVE); KETONES,URINE NEGATIVE (NEGATIVE); LEUKOCYTE ESTERASE ,URINE NEGATIVE (NEGATIVE); NITRITE,URINE NEGATIVE (NEGATIVE); PROTEIN,URINE DIPSTICK NEGATIVE (NEGATIVE); URINE UROBILINOGEN 0.2 mg/dL (0.2 - 1)
[2017-10-14 17:18] LABS: CLARITY,URINE SL CLOUDY (CLEAR); COLOR,URINE STRAW (YELLOW)
[2017-10-14 17:29] LABS: EPITHELIAL CELLS,URINE FEW /LPF; RBC,URINE 0-5 /HPF (0-5); YEAST,URINE MODERATE
[2017-10-14 18:43] VITALS: BP 108/53
--- NOTE | 2017-10-14 21:12 | Diagnostic Imaging Report ---
History:altered mental status, decompensated cirrhotic Comparison studies:None Technique: Axial images were obtained from the skull base to the vertex. Coronal and sagittal images reconstructed from the axial data. Intravenous contrast: None Findings: Scalp/skull: Right parietal calvarium smooth round lucent lesion which is incompletely evaluated but statistically likely a benign entity such as hemangioma. Extra-axial spaces: No masses. No fluid collections. Brain sulci: Mildly prominent. Ventricles: Mild compensatory dilatation. No hydrocephalus. Parenchyma: Scattered hypodensities in the supratentorial white matter are small vessel ischemic changes. No masses, hemorrhage, acute or chronic cortical vascular insults. Sellar/suprasellar region: No abnormalities. Craniocervical junction: Patent foramen magnum. No Chiari one malformation. Incidental findings: Atherosclerotic calcifications in the carotid siphons and distal vertebral arteries. Decreased pneumatization and sclerosis of bilateral mastoid air cells possibly related to chronic inflammatory process. Impression: No acute abnormalities. Chronic findings: 1. Mild generalized volume loss. 2. Mild supratentorial white matter small vessel ischemic changes. Findings discussed with Dr. Rodriguez at 5:28 PM on 10/14/17. A preliminary report was given by Neuroradiology fellow . Signed by: Dr. Anjelica Adams M.D. on 10/14/2017 9:08 PM
[2017-10-14] MEDS ORDERED: SODIUM CHLORIDE 0.9% 50ML 50 ML ONE (22:43)
[2017-10-14] MEDS ORDERED: IOPAMIDOL 370 MG/ML 200 ML INFUS..BTL INJ ONE (22:43)
== END 2017-10-14 18:20 | disposition short-term general hospital (02) ==
LOC: ER 13:44
DX: R10.84 Generalized abdominal pain (principal); R05 Cough; K70.31 Alcoholic cirrhosis of liver with ascites; E83.42 Hypomagnesemia; D65 Disseminated intravascular coagulation [defibrination syndrome]; D63.1 Anemia in chronic kidney disease; D72.819 Decreased white blood cell count, unspecified; F03.90 Unspecified dementia, unspecified severity, without behavioral disturbance, psychotic disturbance, mood disturbance, and anxiety
CPT/HCPCS: 36415; 51700; 70450; 71045; 73552; 73562; 73590; 74177; 80053; 81001; 82140; 82550; 82553; 83690; 83735; 83880; 84443; 84484; 85025; 85610; 85730; 86850; 86900; 87040; 87086; 93005; 93970; 99284; J2405; J3411; J3430; J3475; J7030; Q9967